=== PATIENT | female | born 1955 | race Hispanic/Latino ===

== ENCOUNTER 2016-11-23 15:24 | Outpatient (CLI) | payer OTHER ==
[2016-11-23 15:52] LABS: Anion Gap 16 mmol/L; BUN/Creatinine Ratio 23.33; Blood Urea Nitrogen 14 mg/dL (7-17); Calcium 8.9 mg/dL (8.4-10.2); Carbon Dioxide 28 mmol/L (22-30); Chloride 99.7 mmol/L (98-107); Glucose 100 mg/dL (65-100); Potassium 4.2 mmol/L (3.6-5.0); Sodium 139 mmol/L (137-145)
== END 2016-11-23 15:25 | disposition home or self-care (01) ==
LOC: LAB 15:24
PROVIDERS: ATTEND Surgery
DX: R10.30 Lower abdominal pain, unspecified (principal); I10 Essential (primary) hypertension; F17.200 Nicotine dependence, unspecified, uncomplicated
CPT/HCPCS: 36415; 80048

== ENCOUNTER 2016-12-11 16:43 | Inpatient (IN) | payer OTHER ==
[2016-12-11 18:00] LABS: Basophils % (Auto) 0.8 % (0.0-1.8); Eosinophils % (Auto) 0.4 % (0.0-4.3); Hematocrit 40.4 % (30.3-42.9); Hemoglobin 12.9 gm/dl (10.1-14.3); Mean Corpuscular HGB Conc 32 % (30-34); Mean Corpuscular Hemoglobin 27 pg (28-32); Mean Corpuscular Volume 83 fl (79-97); Platelet Count 426 K/mm3 (140-440); Red Blood Count 4.87 M/mm3 (3.65-5.03); Red Cell Distribution Width 16.5 % (13.2-15.2); White Blood Count 18.9 K/mm3 (4.5-11.0)
[2016-12-11 18:23] LABS: Alanine Aminotransferase 11 units/L (7-56); Albumin 3.4 g/dL (3.9-5); Albumin/Globulin Ratio 0.9 %; Alkaline Phosphatase 103 units/L (35-129); Anion Gap 20 mmol/L; BUN/Creatinine Ratio 17.14; Blood Urea Nitrogen 12 mg/dL (7-17); Calcium 8.8 mg/dL (8.4-10.2); Carbon Dioxide 23 mmol/L (22-30); Chloride 97.3 mmol/L (98-107); Glucose 112 mg/dL (65-100); Lipase 9 units/L (13-60); Potassium 4.9 mmol/L (3.6-5.0); Sodium 135 mmol/L (137-145); Total Protein 7.2 g/dL (6.3-8.2)
[2016-12-11 18:41] LABS: Bilirubin,Urine NEG (Negative); Blood,Urine NEG (Negative); Ketones,Urine NEG (Negative); Leukocyte Esterase,Urine SM (Negative); Mucus,Urine 1+ /HPF; Nitrite,Urine NEG (Negative); Urobilinogen,Urine < 2.0 mg/dL (<2.0)
[2016-12-11] MEDS ORDERED: NACL ONE (19:32)
[2016-12-11] MEDS ORDERED: MORPHINE IV ONE (20:22)
[2016-12-11] MEDS ORDERED: ZOFRAN IV ONE (20:22)
--- NOTE | 2016-12-11 20:34 | Emergency Department Report ---
HPI - General Chief Complaint: Abdominal Pain Time Seen by Provider: 12/11/16 20:09 - HPI HPI: Room 19 The patient is a 7-year-old female presenting with chief complaint of abdominal pain. The patient was recently discharged from this hospital after medical management of diverticulitis with a small diverticular abscess. The patient states at the time of discharge her pain was still present but severely decreased. The patient states later that afternoon her pain worsened. Patient states the pain is sharp like a knife. Patient admits to nausea but denies vomiting. Patient denies any history of fever. Patient states her pain worsened and caused her to pass out. Patient states she contacted her surgeon ( Dr. Austin) were instructed her to come to the ED for repeat CT scan Location: Left lower quadrant Duration: One week Quality: Sharp like a knife Severity:12/14 Modifying factors: [see above] Context: [see above] Mode of transportation: [not driving] ED Past Medical Hx - Past Medical History Previous Medical History?: Yes Hx Hypertension: Yes Hx Arthritis: Yes Additional medical history: INTERSTITIAL CYSTITIS. DIVERTICULITIS - Surgical History Past Surgical History?: Yes Additional Surgical History: BLADDER STRETCHED - Family History Family history: no significant - Social History Smoking Status: Current Every Day Smoker (less than one half pack per day) Substance Use Type: None - Medications Home Medications: Home Medications Medication Instructions Recorded Confirmed Last Taken Type Bisacodyl [Dulcolax suppos] 10 mg [place] QDAY PRN #12 supp.rect 12/05/16 12/11/16 12:00 Rx Levofloxacin [Levaquin TAB] 500 mg PO QDAY #7 tablet 12/05/16 12/11/16 12/11/16 12:00 Rx Ondansetron [Zofran TAB] 4 mg PO Q8H PRN #12 tablet 12/05/16 12/11/16 12/11/16 12:00 Rx metroNIDAZOLE [Flagyl TAB] 500 mg PO Q8HR #21 tablet 12/05/16 12/11/16 12/11/16 12:00 Rx ED Review of Systems ROS: Stated complaint: DR'S ORDERS Other details as noted in HPI Comment: All other systems reviewed and negative Constitutional: denies: chills, fever Eyes: denies: eye pain, eye discharge, vision change ENT: denies: ear pain, throat pain Respiratory: denies: cough, shortness of breath, wheezing Cardiovascular: denies: chest pain, palpitations Endocrine: no symptoms reported Gastrointestinal: abdominal pain, nausea. denies: vomiting, diarrhea Genitourinary: denies: urgency, dysuria, discharge Musculoskeletal: denies: back pain, joint swelling, arthralgia Skin: denies: rash, lesions Neurological: denies: headache, weakness, paresthesias Psychiatric: denies: anxiety, depression Hematological/Lymphatic: denies: easy bleeding, easy bruising Physical Exam - Physical Exam Vital Signs: Vital Signs 12/11/16 12/11/16 12/11/16 17:40 18:56 19:36 Temperature 98.5 F Pulse Rate 107 H 69 Respiratory 16 18 16 Rate Blood Pressure 111/82 Blood Pressure 99/72 [Right] O2 Sat by Pulse 100 100 100 Oximetry 12/11/16 19:38 Temperature Pulse Rate Respiratory 16 Rate Blood Pressure Blood Pressure [Right] O2 Sat by Pulse Oximetry Physical Exam: GENERAL: The patient is well-developed well-nourished female lying on stretcher not appearing to be in acute distress. [] HEENT: Normocephalic. Atraumatic. Extraocular motions are intact. Patient has moist mucous membranes. NECK: Supple. Trachea midline CHEST/LUNGS: Clear to auscultation. There is no respiratory distress noted. HEART/CARDIOVASCULAR: Regular. There is no tachycardia. There is no gallop rub or murmur. ABDOMEN: Abdomen is soft, with tenderness to palpation in suprapubic and left lower quadrant. Patient has normal bowel sounds. There is no abdominal distention. SKIN: There is no rash. There is no edema. There is no diaphoresis. NEURO: The patient is awake, alert, and oriented. The patient is cooperative. The patient has normal speech MUSCULOSKELETAL: There is no evidence of acute injury. ED Course Vital Signs 12/11/16 12/11/16 12/11/16 17:40 18:56 19:36 Temperature 98.5 F Pulse Rate 107 H 69 Respiratory 16 18 16 Rate Blood Pressure 111/82 Blood Pressure 99/72 [Right] O2 Sat by Pulse 100 100 100 Oximetry 12/11/16 19:38 Temperature Pulse Rate Respiratory 16 Rate Blood Pressure Blood Pressure [Right] O2 Sat by Pulse Oximetry - Consultations Consultation #1: 12/11/16 21:57 Dr. Austin paged 12/11/16 22:[address] Austin. Will admit ED Medical Decision Making - Lab Data Result diagrams: 12/11/16 17:49 12/11/16 17:49 Laboratory Tests 12/11/16 12/11/16 12/11/16 17:49 17:49 17:59 WBC 18.9 H RBC 4.87 Hgb 12.9 Hct 40.4 MCV 83 MCH 27 L MCHC 32 RDW 16.5 H Plt Count 426 Lymph % (Auto) 11.4 L [place] % (Auto) 7.0 Eos % (Auto) 0.4 Baso % (Auto) 0.8 Lymph # 2.2 [place] # 1.3 H Eos # 0.1 Baso # 0.2 H Seg Neutrophils % 80.4 H Seg Neutrophils # 15.2 H Sodium 135 L Potassium 4.9 Chloride 97.3 L Carbon Dioxide 23 Anion Gap 20 BUN 12 Creatinine 0.7 Estimated GFR > 60 BUN/Creatinine Ratio 17.14 Glucose 112 H Calcium 8.8 Total Bilirubin 0.40 AST 10 ALT 11 Alkaline Phosphatase 103 Total Protein 7.2 Albumin 3.4 L Albumin/Globulin Ratio 0.9 Lipase 9 L Urine Color Meaghan Urine Turbidity Clear Urine pH 5.0 Ur Specific [place] 1.036 H Urine Protein 30 mg/dl Urine Glucose (UA) Neg Urine Ketones Neg Urine Blood Neg Urine Nitrite Neg Urine Bilirubin Neg Urine Urobilinogen < 2.0 Ur Leukocyte Esterase Sm Urine WBC (Auto) 3.0 Urine RBC (Auto) 4.0 U Epithel Cells (Auto) 1.0 Urine Mucus 1+ - Differential Diagnosis diverticulitis, diverticular abscess, bowel perforation Critical care attestation.: If time is entered above; I have spent that time in minutes in the direct care of this critically ill patient, excluding procedure time. ED Disposition Clinical Impression: Diverticulitis of intestine with abscess, Acute abdominal pain, Leukocytosis Disposition: OP ADMIT IP TO THIS HOSP Is pt being admited?: Yes Does the pt Need Aspirin: No Condition: Fair Instructions: Abdominal Pain (ED) Referrals: PRIMARY CARE, [Primary Care Provider] - 3-5 Days Time of Disposition: 22:04 (Dr. Austin notified)
[2016-12-11] MEDS ORDERED: SUBLIMAZE IV ONE (20:45)
--- NOTE | 2016-12-11 21:58 | Cat Scan Report ---
FINAL REPORT EXAM: CT ABDOMEN PELVIS W CON HISTORY: ABD PAIN TECHNIQUE: CT images are acquired through the Abdomen and Pelvis following ingestion of positive enteric contrast and in arterial and delayed excretory phase following intravenous administration of contrast. Transaxial, coronal and sagittal reformations are provided. PRIORS: 11/13/2015 FINDINGS: Partially visualized intrathoracic contents are unremarkable. The liver, gallbladder, pancreas, spleen, and adrenal glands are normal. Kidneys show no worrisome lesions, hydronephrosis, or calculi. There is thickening of the urinary bladder wall. No air or contrast is seen within the urinary bladder on arterial or delayed phases. Mass effect on the superior urinary bladder from adjacent fluid collection, as described in detail below. Positive enteric contrast is seen as far distally as the rectum. There is marked wall thickening and irregularity with adjacent stranding and fluid involving the rectosigmoid junction and distal sigmoid colon best demonstrated on axial series 3, image 117. A fluid collection abutting the sigmoid colon on axial images 124-127 contains small foci of air and is peripherally enhancing. No communication with the urinary bladder or additional loops of bowel is visualized on this exam. Small and large bowel are normal in caliber. Appendix is normal. No pneumoperitoneum. Aorta is normal in course and caliber. Superficial soft tissues are unremarkable. No acute or aggressive appearing skeletal findings. IMPRESSION: Acute sigmoid diverticulitis is present with adjacent abscess formation measuring at least 4.1 x 4.8 x 4.1 cm. The abscess abuts the urinary bladder and several loops of contrast opacified small bowel but does not clearly communicate with any additional structures. No elissa pneumoperitoneum. Potential underlying sigmoid colonic malignancy should be investigated following treatment if colonoscopy has not been recently performed. Dr. Jiang discussed findings with Dr. Gary at [address] [employer] following the examination.
[2016-12-11] MEDS ORDERED: MORPHINE IV PRN (22:14)
[2016-12-11] MEDS: FLAGYL 500 MG/100 ML 500 MG/100 ML BAG IV SCH (23:00)
[2016-12-11] MEDS: D5/0.45NS 1,000 ML IV SCH (23:35)
[2016-12-11] MEDS: LEVAQUIN 500MG/100ML 500 MG/100 ML BAG IV SCH (23:43)
[2016-12-12] MEDS: MORPHINE IV PRN ×4 (00:10→21:25)
[2016-12-12] MEDS: ZOFRAN IV PRN ×3 (00:52→21:25)
[2016-12-12] MEDS: FLAGYL 500 MG/100 ML 500 MG/100 ML BAG IV SCH ×3 (05:44→21:44)
[2016-12-12 07:19] LABS: Basophils % (Auto) 0.5 % (0.0-1.8); Eosinophils % (Auto) 2.1 % (0.0-4.3); Hematocrit 34.5 % (30.3-42.9); Hemoglobin 11.1 gm/dl (10.1-14.3); Mean Corpuscular HGB Conc 32 % (30-34); Mean Corpuscular Hemoglobin 27 pg (28-32); Mean Corpuscular Volume 83 fl (79-97); Platelet Count 356 K/mm3 (140-440); Red Blood Count 4.18 M/mm3 (3.65-5.03); Red Cell Distribution Width 15.9 % (13.2-15.2)
[2016-12-12] MEDS: D5/0.45NS 1,000 ML IV SCH (12:35)
[2016-12-12 12:53] LABS: Anion Gap 16 mmol/L; BUN/Creatinine Ratio 14.28; Blood Urea Nitrogen 10 mg/dL (7-17); Calcium 8.3 mg/dL (8.4-10.2); Carbon Dioxide 24 mmol/L (22-30); Chloride 101.7 mmol/L (98-107); Glucose 102 mg/dL (65-100); Potassium 3.9 mmol/L (3.6-5.0); Sodium 138 mmol/L (137-145)
--- NOTE | 2016-12-12 16:40 | Progress Note ---
Assessment and Plan 61 y/o female known to me. Recently admitted with diverticulitis with abscess formation. Rx with antibiotics and clinically improved. wbc returned to normal , jose juan diet, pain free and was d/c'ed to outpt f/u. However pt called me yest that she began to experience pain again. Was re- eval in ER where abscess was noted to be slightly enlarged Pt re-admitted. will be kept NPO and start TPN. Continue IV antibiiotics. IR eval for percutaneous CT guided drainage Will attempt one last trial of aggressive medical management in hopes of avoiding colostomy. Selected Entries 12/05/16 12/12/16 09:32 08:00 Temperature 98.2 F 98.3 F Pulse Rate [ 70 Left Radial] Respiratory 16 18 Rate O2 Sat by Pulse 97 Oximetry Blood Pressure 98/53 [Left Arm] Blood Pressure 123/72 [Left Radial Artery] Laboratory Tests 12/05/16 12/05/16 12/11/16 05:12 05:12 17:49 WBC 8.4 18.9 H Hgb 11.4 12.9 Hct 34.5 40.4 Sodium 142 Potassium 3.4 L Chloride 105.2 Carbon Dioxide 27 Anion Gap 13 BUN Creatinine 12/12/16 12/12/16 06:43 12:10 WBC 12.0 H Hgb 11.1 Hct 34.5 Sodium 138 Potassium 3.9 D Chloride 101.7 Carbon Dioxide 24 Anion Gap 16 BUN 10 Creatinine 0.7 Objective Vital Signs - 12hr 12/12/16 08:00 Temperature 98.3 F Pulse Rate [ 87 Brachial] Respiratory 18 Rate Blood Pressure 98/53 [Left Arm] O2 Sat by Pulse 97 Oximetry - Labs 12/12/16 06:43 12/12/16 12:10 Diabetes panel 12/12/16 Range/Units 12:10 Sodium 138 (137-145) mmol/L Potassium 3.9 D (3.6-5.0) mmol/L Chloride 101.7 (98-107) mmol/L Carbon Dioxide 24 (22-30) mmol/L BUN 10 (7-17) mg/dL Creatinine 0.7 (0.7-1.2) mg/dL Glucose 102 H (65-100) mg/dL Calcium 8.3 L (8.4-10.2) mg/dL Calcium panel 12/12/16 Range/Units 12:10 Calcium 8.3 L (8.4-10.2) mg/dL Phosphorus 3.40 (2.5-4.5) mg/dL Pituitary panel 12/12/16 Range/Units 12:10 Sodium 138 (137-145) mmol/L Potassium 3.9 D (3.6-5.0) mmol/L Chloride 101.7 (98-107) mmol/L Carbon Dioxide 24 (22-30) mmol/L BUN 10 (7-17) mg/dL Creatinine 0.7 (0.7-1.2) mg/dL Glucose 102 H (65-100) mg/dL Calcium 8.3 L (8.4-10.2) mg/dL Adrenal panel 12/12/16 Range/Units 12:10 Sodium 138 (137-145) mmol/L Potassium 3.9 D (3.6-5.0) mmol/L Chloride 101.7 (98-107) mmol/L Carbon Dioxide 24 (22-30) mmol/L BUN 10 (7-17) mg/dL Creatinine 0.7 (0.7-1.2) mg/dL Glucose 102 H (65-100) mg/dL Calcium 8.3 L (8.4-10.2) mg/dL
--- NOTE | 2016-12-12 16:41 | History and Physical Report ---
History of Present Illness Date of admission: 12/11/16 22:08 Medications and Allergies Allergies Allergy/AdvReac Type Severity Reaction Status Date / Time No Known Allergies Allergy Verified 12/11/16 19:49 Home Medications Medication Instructions Recorded Confirmed Last Taken Type Bisacodyl [Dulcolax suppos] 10 mg [place] QDAY PRN #12 supp.rect 12/05/16 12/11/16 12:00 Rx Levofloxacin [Levaquin TAB] 500 mg PO QDAY #7 tablet 12/05/16 12/11/16 12/11/16 12:00 Rx Ondansetron [Zofran TAB] 4 mg PO Q8H PRN #12 tablet 12/05/16 12/11/16 12/11/16 12:00 Rx metroNIDAZOLE [Flagyl TAB] 500 mg PO Q8HR #21 tablet 12/05/16 12/11/16 12/11/16 12:00 Rx Active Meds: Active Medications Dextrose/Sodium Chloride (D5/0.45ns) 1,000 mls @ 125 mls/hr IV DIRECT [facility] Last Admin: 12/12/16 12:35 Dose: 125 mls/hr Levofloxacin/Dextrose (Levaquin 500mg/100ml) 500 mg in 100 mls @ 100 mls/hr IV Q24HR@2200 [facility] PRN Reason: Protocol Last Admin: 12/11/16 23:43 Dose: 100 mls/hr Metronidazole (Flagyl 500 Mg/100 Ml) 500 mg in 100 mls @ 100 mls/hr IV Q8HR [facility] Last Admin: 12/12/16 15:23 Dose: 100 mls/hr Amino Acids/Electrolytes/Dextrose (Tpn Adult) 2,016 mls @ 84 mls/hr IV DAILY@ 2000 [facility] PRN Reason: Protocol Stop: 12/13/16 19:59 Morphine Sulfate (Morphine) 4 mg IV Q3H PRN PRN Reason: Pain, Moderate (4-6) Last Admin: 12/12/16 15:22 Dose: 4 mg Nicotine (Habitrol) 14 mg TD QDAY [facility] Ondansetron HCl (Zofran) 4 mg IV Q4H PRN PRN Reason: Nausea Last Admin: 12/12/16 10:52 Dose: 4 mg Exam Vital Signs Temp Pulse Resp BP Pulse Ox 98.5 F 107 H 16 111/82 100 12/11/16 17:40 12/11/16 17:40 12/11/16 17:40 12/11/16 17:40 12/11/16 17:40 Results - Labs 12/12/16 06:43 12/12/16 12:10 Abnormal lab results 12/12/16 12/12/16 Range/Units 06:43 12:10 WBC 12.0 H (4.5-11.0) K/mm3 MCH 27 L (28-32) pg RDW 15.9 H (13.2-15.2) % [place] % (Auto) 10.9 H (0.0-7.3) % [place] # 1.3 H (0.0-0.8) K/mm3 Seg Neutrophils # 8.4 H (1.8-7.7) K/mm3 Glucose 102 H (65-100) mg/dL Calcium 8.3 L (8.4-10.2) mg/dL Diabetes panel 12/12/16 Range/Units 12:10 Sodium 138 (137-145) mmol/L Potassium 3.9 D (3.6-5.0) mmol/L Chloride 101.7 (98-107) mmol/L Carbon Dioxide 24 (22-30) mmol/L BUN 10 (7-17) mg/dL Creatinine 0.7 (0.7-1.2) mg/dL Glucose 102 H (65-100) mg/dL Calcium 8.3 L (8.4-10.2) mg/dL Calcium panel 12/12/16 Range/Units 12:10 Calcium 8.3 L (8.4-10.2) mg/dL Phosphorus 3.40 (2.5-4.5) mg/dL Pituitary panel 12/12/16 Range/Units 12:10 Sodium 138 (137-145) mmol/L Potassium 3.9 D (3.6-5.0) mmol/L Chloride 101.7 (98-107) mmol/L Carbon Dioxide 24 (22-30) mmol/L BUN 10 (7-17) mg/dL Creatinine 0.7 (0.7-1.2) mg/dL Glucose 102 H (65-100) mg/dL Calcium 8.3 L (8.4-10.2) mg/dL Adrenal panel 12/12/16 Range/Units 12:10 Sodium 138 (137-145) mmol/L Potassium 3.9 D (3.6-5.0) mmol/L Chloride 101.7 (98-107) mmol/L Carbon Dioxide 24 (22-30) mmol/L BUN 10 (7-17) mg/dL Creatinine 0.7 (0.7-1.2) mg/dL Glucose 102 H (65-100) mg/dL Calcium 8.3 L (8.4-10.2) mg/dL Assessment and Plan 61 y/o female known to me. Recently admitted with diverticulitis with abscess formation. Rx with antibiotics and clinically improved. wbc returned to normal , jose juan diet, pain free and was d/c'ed to outpt f/u. However pt called me yest that she began to experience pain again. Was re- eval in ER where abscess was noted to be slightly enlarged Pt re-admitted. for other Past Hx please review admission from a couple of weeks ago. Abd soft. mild LLQ abd tenderness. IMP -persistent diverticulitis will be kept NPO and start TPN. Continue IV antibiiotics. IR eval for percutaneous CT guided drainage Will attempt one last trial of aggressive medical management in hopes of avoiding colostomy. Laboratory Tests 12/11/16 12/12/16 12/12/16 17:49 06:43 12:10 WBC 18.9 H 12.0 H Hgb 12.9 11.1 Hct 40.4 34.5 Sodium 138 Potassium 3.9 D Chloride 101.7 Carbon Dioxide 24 Anion Gap 16 BUN 10 Creatinine 0.7
[2016-12-12] MEDS: HABITROL TD SCH (18:23)
[2016-12-12] MEDS ORDERED: TPN ADULT 3,000 ML IV SCH (20:00)
[2016-12-12] MEDS: TPN ADULT 2,016 ML IV SCH ×2 (20:46→21:27)
[2016-12-12] MEDS: LEVAQUIN 500MG/100ML 500 MG/100 ML BAG IV SCH (22:42)
[2016-12-13] MEDS: ZOFRAN IV PRN ×2 (03:46→21:31)
[2016-12-13] MEDS: MORPHINE IV PRN ×5 (03:46→21:31)
[2016-12-13 05:43] LABS: Magnesium 1.8 mg/dL (1.7-2.3); Phosphorous 3.6 mg/dL (2.5-4.5)
[2016-12-13 05:45] LABS: Alanine Aminotransferase 7 units/L (7-56); Albumin 2.5 g/dL (3.9-5); Albumin/Globulin Ratio 0.8 %; Alkaline Phosphatase 76 units/L (35-129); Anion Gap 16 mmol/L; Blood Urea Nitrogen 9 mg/dL (7-17); Calcium 7.8 mg/dL (8.4-10.2); Carbon Dioxide 23 mmol/L (22-30); Chloride 100.4 mmol/L (98-107); Glucose 112 mg/dL (65-100); Potassium 4.3 mmol/L (3.6-5.0); Sodium 135 mmol/L (137-145); Total Protein 5.8 g/dL (6.3-8.2)
[2016-12-13] MEDS: FLAGYL 500 MG/100 ML 500 MG/100 ML BAG IV SCH ×3 (07:45→23:10)
[2016-12-13] MEDS: HABITROL TD SCH (09:25)
[2016-12-13] MEDS ORDERED: TPN ADULT 2,016 ML IV SCH (20:00)
[2016-12-13] MEDS: LEVAQUIN 500MG/100ML 500 MG/100 ML BAG IV SCH (21:36)
[2016-12-14] MEDS: MORPHINE IV PRN ×5 (02:08→20:11)
[2016-12-14 05:35] LABS: Basophils % (Auto) 0.5 % (0.0-1.8); Eosinophils % (Auto) 3.4 % (0.0-4.3); Hematocrit 30.2 % (30.3-42.9); Hemoglobin 9.9 gm/dl (10.1-14.3); Mean Corpuscular HGB Conc 33 % (30-34); Mean Corpuscular Hemoglobin 28 pg (28-32); Mean Corpuscular Volume 84 fl (79-97); Platelet Count 348 K/mm3 (140-440); Red Blood Count 3.61 M/mm3 (3.65-5.03); Red Cell Distribution Width 15.5 % (13.2-15.2); White Blood Count 9.4 K/mm3 (4.5-11.0)
[2016-12-14 05:52] LABS: Anion Gap 16 mmol/L; Blood Urea Nitrogen 9 mg/dL (7-17); Carbon Dioxide 27 mmol/L (22-30); Glucose 124 mg/dL (65-100); Potassium 4.1 mmol/L (3.6-5.0); Sodium 139 mmol/L (137-145)
[2016-12-14] MEDS: FLAGYL 500 MG/100 ML 500 MG/100 ML BAG IV SCH ×3 (06:09→21:48)
--- NOTE | 2016-12-14 08:00 | Progress Note ---
Assessment and Plan Pt feeling better. less pain Abd soft, non tender at present wbc down to 9.4 awaiting IR eval for CT guided drainage Selected Entries 12/14/16 07:27 Temperature 98.1 F Pulse Rate [ 86 Brachial] Respiratory 16 Rate O2 Sat by Pulse 97 Oximetry Blood Pressure 89/59 [Left Arm] Laboratory Tests 12/14/16 04:55 WBC 9.4 Hgb 9.9 L Hct 30.2 L Objective Vital Signs - 12hr 12/13/16 12/14/16 23:03 07:27 Temperature 98.2 F 98.1 F Pulse Rate [ 79 86 Brachial] Respiratory 79 H 16 Rate Blood Pressure 102/59 89/59 [Left Arm] O2 Sat by Pulse 99 97 Oximetry - Labs 12/14/16 04:55 12/14/16 04:55 Diabetes panel 12/14/16 Range/Units 04:55 Sodium 139 (137-145) mmol/L Potassium 4.1 (3.6-5.0) mmol/L Chloride 100.0 (98-107) mmol/L Carbon Dioxide 27 (22-30) mmol/L BUN 9 (7-17) mg/dL Creatinine 0.6 L (0.7-1.2) mg/dL Glucose 124 H (65-100) mg/dL Calcium 8.0 L (8.4-10.2) mg/dL Calcium panel 12/14/16 Range/Units 04:55 Calcium 8.0 L (8.4-10.2) mg/dL Phosphorus 3.90 (2.5-4.5) mg/dL Pituitary panel 12/14/16 Range/Units 04:55 Sodium 139 (137-145) mmol/L Potassium 4.1 (3.6-5.0) mmol/L Chloride 100.0 (98-107) mmol/L Carbon Dioxide 27 (22-30) mmol/L BUN 9 (7-17) mg/dL Creatinine 0.6 L (0.7-1.2) mg/dL Glucose 124 H (65-100) mg/dL Calcium 8.0 L (8.4-10.2) mg/dL Adrenal panel 12/14/16 Range/Units 04:55 Sodium 139 (137-145) mmol/L Potassium 4.1 (3.6-5.0) mmol/L Chloride 100.0 (98-107) mmol/L Carbon Dioxide 27 (22-30) mmol/L BUN 9 (7-17) mg/dL Creatinine 0.6 L (0.7-1.2) mg/dL Glucose 124 H (65-100) mg/dL Calcium 8.0 L (8.4-10.2) mg/dL
[2016-12-14] MEDS: ZOFRAN IV PRN ×2 (10:26→20:11)
[2016-12-14] MEDS: HABITROL TD SCH (10:27)
--- NOTE | 2016-12-14 10:50 | Consultation ---
History of Present Illness - Reason for Consult Consult date: 12/14/16 - History of Present Illness This is a 61-year-old female with recurrent diverticulitis. She had a recent episode which was treated with antibiotics. However, she complained of increasing abdominal pain thereafter and was brought back to the hospital. CT imaging from over the weekend demonstrated that a known diverticular abscess had increased in size. As such, IR drainage has been requested. Over the last couple of days the patient has clinically improved, with less pain overall. Her white blood cell count has decreased, likely related to the use of IV antibiotics. Medications and Allergies Allergies Allergy/AdvReac Type Severity Reaction Status Date / Time No Known Allergies Allergy Verified 12/11/16 19:49 Home Medications Medication Instructions Recorded Confirmed Last Taken Type Bisacodyl [Dulcolax suppos] 10 mg [place] QDAY PRN #12 supp.rect 12/05/16 12/11/16 12:00 Rx Levofloxacin [Levaquin TAB] 500 mg PO QDAY #7 tablet 12/05/16 12/11/16 12/11/16 12:00 Rx Ondansetron [Zofran TAB] 4 mg PO Q8H PRN #12 tablet 12/05/16 12/11/16 12/11/16 12:00 Rx metroNIDAZOLE [Flagyl TAB] 500 mg PO Q8HR #21 tablet 12/05/16 12/11/16 12/11/16 12:00 Rx Active Meds: Active Medications Levofloxacin/Dextrose (Levaquin 500mg/100ml) 500 mg in 100 mls @ 100 mls/hr IV Q24HR@2200 [facility] PRN Reason: Protocol Last Admin: 12/13/16 21:36 Dose: 100 mls/hr Metronidazole (Flagyl 500 Mg/100 Ml) 500 mg in 100 mls @ 100 mls/hr IV Q8HR [facility] Last Admin: 12/14/16 06:09 Dose: 100 mls/hr Amino Acids/Electrolytes/Dextrose (Tpn Adult) 2,016 mls @ 84 mls/hr IV DAILY@ 2000 [facility] PRN Reason: Protocol Stop: 12/14/16 19:59 Last Admin: 12/13/16 20:26 Dose: 84 mls/hr Sodium Chloride (Nacl 0.45% 1000 Ml) 1,000 mls @ 42 mls/hr IV DIRECT [facility] Morphine Sulfate (Morphine) 4 mg IV Q3H PRN PRN Reason: Pain, Moderate (4-6) Last Admin: 12/14/16 10:26 Dose: 4 mg Nicotine (Habitrol) 14 mg TD QDAY [facility] Last Admin: 12/14/16 10:27 Dose: 14 mg Ondansetron HCl (Zofran) 4 mg IV Q4H PRN PRN Reason: Nausea Last Admin: 12/14/16 10:26 Dose: 4 mg Exam - Constitutional Vitals: Temp Pulse Resp BP Pulse Ox 98.1 F 86 16 89/59 97 12/14/16 07:27 12/14/16 07:27 12/14/16 07:27 12/14/16 07:27 12/14/16 07:27 Results - Labs CBC & Chem 7: 12/14/16 04:55 12/14/16 04:55 Labs: Abnormal lab results 12/13/16 12/13/16 12/14/16 Range/Units 12:47 18:34 04:55 RBC 3.61 L (3.65-5.03) M/mm3 Hgb 9.9 L (10.1-14.3) gm/dl Hct 30.2 L (30.3-42.9) % RDW 15.5 H (13.2-15.2) % [place] % (Auto) 9.5 H (0.0-7.3) % [place] # 0.9 H (0.0-0.8) K/mm3 Creatinine (0.7-1.2) mg/dL Glucose (65-100) mg/dL POC Glucose 118 H 120 H (70-105) Calcium (8.4-10.2) mg/dL 12/14/16 Range/Units 04:55 RBC (3.65-5.03) M/mm3 Hgb (10.1-14.3) gm/dl Hct (30.3-42.9) % RDW (13.2-15.2) % [place] % (Auto) (0.0-7.3) % Lynn # (0.0-0.8) K/mm3 Creatinine 0.6 L (0.7-1.2) mg/dL Glucose 124 H (65-100) mg/dL POC Glucose (70-105) Calcium 8.0 L (8.4-10.2) mg/dL Assessment and Plan I evaluated her CT and determined that the abscess is amenable to percutaneous drainage. I will ultrasound the region myself and if amenable, I will place a drainage catheter with a combination of ultrasound and fluoroscopy. If the collection is not amenable to ultrasound-guided drainage, I will place a drainage catheter CT.
[2016-12-14] MEDS ORDERED: SUBLIMAZE IV ONE (11:31)
[2016-12-14] MEDS ORDERED: VERSED IV ONE ×2 (11:31→12:05)
[2016-12-14] MEDS ORDERED: SUBLIMAZE ONE (12:05)
--- NOTE | 2016-12-14 12:44 | XRay Report ---
PORTABLE CHEST INDICATION: Left arm PICC placement. COMPARISON: 10/18/2007 FINDINGS: Portable, frontal chest radiograph demonstrates normal cardiomediastinal silhouette and clear lungs. Left upper extremity PICC tip at the cavoatrial junction. A catheter also noted along the right arm medially with its tip at the axilla. Please correlate. Intact bones. CONCLUSION: Uncomplicated left upper extremity PICC with suboptimally positioned right upper arm catheter, as described. Please correlate. Thank you for the opportunity to participate in this patient's care.
--- NOTE | 2016-12-14 13:41 | Cat Scan Report ---
Procedure: CT guided drainage catheter placement Indication: This is a 61-year-old female with recurrent diverticulitis. Recent CT imaging demonstrated a left pelvic abscess. This, along with her symptoms of pain and an elevated white blood cell count warranted drainage. Physician: Marino Astudillo MD Procedure: The patient was placed in the supine position on the CT table. A marking grid was placed on the patient, and an appropriate site was marked after flood control engineer imaging. The patient was prepped and draped in the usual sterile fashion. A time out was performed. Local anesthetic was administered both superficially, and at the level of the peritoneum. A 22-gauge spinal needle was advanced under sequential CT guidance into the collection. An 18-gauge wire was advanced through the 22-gauge needle, and placement within the collection was confirmed. An AccuStick system was utilized in order to allow passage of an 035 J-wire. Over the J-wire, sequential tissue dilators were advanced and removed. Thereafter, a 10 Uzbek all-purpose drainage catheter was placed, and the locking loop was formed. Placement was confirmed via CT. The drain was secured to the skin with a 2-0 silk suture and a stat lock. The drain was then connected to a Uracil bag. Sterile dressings were placed. The patient was then transported off the table in good condition. Findings: Review of the flood control engineer imaging demonstrates a left lower quadrant abscess with surrounding inflammatory changes. The inferior aspect of the abscess abuts the urinary bladder. There is successful placement of a 10 Uzbek drainage catheter into this collection. Approximately 50 cc of bloody/purulent thick fluid was promptly drained. A specimen was sent to the lab for Gram stain, culture and sensitivity.
--- NOTE | 2016-12-14 15:10 | Admit Criteria Form ---
Admission Criteria Documentation: ABDOMINAL PAIN Clinical Indications for Admission to Inpatient Care (Place 'X' for any and all applicable criteria): Admission is indicated for ANY ONE of the following(1)(2)(3)(4)(5): [ X]I. Inpatient admission required rather than observation care (Also use Abdominal Pain: Observation Care, as appropriate) because of ANY ONE of the following: [ ]a) Severe pain requiring acute inpatient management [X ]b) Identification of etiology/finding that requires inpatient care (eg, aortic dissection, free air) [ ]c) Absent bowel sounds with complete ileus(6) [ ]d) Suspected toxic megacolon [ ]e) Severe electrolyte abnormalities requiring inpatient care [ ]f) High fever or infection requiring inpatient admission as indicated by ANY ONE of following(7)(8): [ ] i) Appropriate outpatient or observational care antimicrobial treatment unavailable, not effective, or not feasible [ ] ii) Documented bacteremia [ ] iii) Temperature > 104.9 degrees F (oral) [ ] iv) T >103.1 F (oral) or < 96.8 F(rectal) that does not respond to all emergency treatment measures [ ]g) Signs of intestinal obstruction [B] [ ]h) Hemodynamic instability [ ]i) IV fluid to replace significant ongoing losses (greater than 3 L/m2 per day) (12)(13) [ ]j) Percutaneous or open drainage (eg, abscess, biliary tract ) procedures [ ]k) Parenteral nutrition regimen that must be implemented on inpatient basis [ ]l) Other condition,treatment or monitoring requiring inpatient admission. [ ]II. Peritoneal signs present [ ]III. Surgery needed that cannot be performed on an ambulatory basis. [ ]IV. Evaluation requires patient to not eat or drink for extended period ( eg, more than 24 hours). [ ]V. Contraindications and/or Inappropriate clinical situations for Observational Care in patients with abdominal pain, when ANY ONE of the following is required: [ ]a) Thorough evaluation is required to prevent catastrophic events due to delays in diagnosing (e.g.Mesenteric ischemia) 1,3 [ ]b) Patient with severe pathology or with chronic symptoms unlikely to improve in the ED stay (3) [ ]. General contraindications and/or Inappropriate clinical situations for Observational Care in patients with abdominal pain, when ANY ONE of the following is required: [ ]a) Prediction of prolongation of LOS based on ANY ONE of the following may be considered as a contraindication for observational care 2, 3, 4, 5, 6, 7, 8, 9, 10, 11 [ ]i) Age > 65 yrs. [ ]ii) Patient arriving by ambulance [ ]iii) Patient with high acuity [ ]iv) Patient requiring vital sign monitoring [ ]v) Patient on IV medication [ ]b) Systolic blood pressures 180mmHg 3,12 [ ]c) Patient with altered mental status including delirium and other alteration of consciousness, (3) [ ]d) Patient whose discharge disposition will be to a [facility] home or rehabilitation home should not be managed in Emergency Department Observation Unit. CMS rule requires 3 days hospital stay before such placement.3,13 [ ]e) Patient with failure to thrive due to broad array of etiologies 3,16,17 [ ]f) Inability to ambulate 3,14 Extended stay beyond goal length of stay may be needed for(2)(3): [ ]a) Persistent abdominal pain with suspected intra-abdominal process [ ]b) Diagnosed condition requiring continued stay (e.g., pancreatitis, complicated diverticulitis) [ ]c) Surgery (e.g., colectomy) The original [employer] content created by [email or web address] has been revised. The portions of the content which have been revised are identified through the use of italic text or in bold, and [facility] has neither reviewed nor approved the modified material.All other unmodified content is copyright [employer]. Please see references footnoted in the original [employer] edition 2016 Admission Criteria Met: Yes
[2016-12-14] MEDS ORDERED: TPN ADULT 2,016 ML IV SCH (20:00)
[2016-12-14] MEDS ORDERED: INTRALIPID 20% 250 ML IV SCH (20:00)
[2016-12-14] MEDS: LEVAQUIN 500MG/100ML 500 MG/100 ML BAG IV SCH (23:22)
[2016-12-15] MEDS: MORPHINE IV PRN ×5 (02:13→20:35)
[2016-12-15] MEDS: FLAGYL 500 MG/100 ML 500 MG/100 ML BAG IV SCH ×3 (05:55→22:21)
[2016-12-15 06:34] LABS: Anion Gap 15 mmol/L; Blood Urea Nitrogen 13 mg/dL (7-17); Calcium 8.4 mg/dL (8.4-10.2); Carbon Dioxide 28 mmol/L (22-30); Chloride 97.7 mmol/L (98-107); Glucose 96 mg/dL (65-100); Potassium 4.2 mmol/L (3.6-5.0); Sodium 136 mmol/L (137-145)
[2016-12-15] MEDS: NACL 0.45% 1000 ML 1,000 ML IV SCH (08:19)
[2016-12-15] MEDS: HABITROL TD SCH (09:58)
--- NOTE | 2016-12-15 12:11 | Progress Note ---
Assessment and Plan Pt status quo. Successful CT guided drainage perfomed yest (around 45 cc from drain noted since procedure). cults pending Abd soft, non tender stable will obtain ID eval continue TPN continue present care Selected Entries 12/15/16 11:05 Temperature 98.4 F Pulse Rate [ 80 Brachial] Respiratory 18 Rate Blood Pressure 106/65 [Left Arm] Objective Vital Signs - 12hr 12/15/16 12/15/16 12/15/16 05:52 07:25 11:05 Temperature 98.4 F 98.7 F 98.4 F Pulse Rate [ 83 71 80 Brachial] Respiratory 16 18 18 Rate Blood Pressure 102/67 95/59 106/65 [Left Arm] O2 Sat by Pulse 95 Oximetry - Labs 12/14/16 04:55 12/15/16 Unknown Diabetes panel 12/15/16 Range/Units Unknown Sodium 136 L (137-145) mmol/L Potassium 4.2 (3.6-5.0) mmol/L Chloride 97.7 L (98-107) mmol/L Carbon Dioxide 28 (22-30) mmol/L BUN 13 (7-17) mg/dL Creatinine 0.5 L (0.7-1.2) mg/dL Glucose 96 (65-100) mg/dL Calcium 8.4 (8.4-10.2) mg/dL Calcium panel 12/15/16 Range/Units Unknown Calcium 8.4 (8.4-10.2) mg/dL Phosphorus 4.10 (2.5-4.5) mg/dL Pituitary panel 12/15/16 Range/Units Unknown Sodium 136 L (137-145) mmol/L Potassium 4.2 (3.6-5.0) mmol/L Chloride 97.7 L (98-107) mmol/L Carbon Dioxide 28 (22-30) mmol/L BUN 13 (7-17) mg/dL Creatinine 0.5 L (0.7-1.2) mg/dL Glucose 96 (65-100) mg/dL Calcium 8.4 (8.4-10.2) mg/dL Adrenal panel 12/15/16 Range/Units Unknown Sodium 136 L (137-145) mmol/L Potassium 4.2 (3.6-5.0) mmol/L Chloride 97.7 L (98-107) mmol/L Carbon Dioxide 28 (22-30) mmol/L BUN 13 (7-17) mg/dL Creatinine 0.5 L (0.7-1.2) mg/dL Glucose 96 (65-100) mg/dL Calcium 8.4 (8.4-10.2) mg/dL
[2016-12-15] MEDS ORDERED: TPN ADULT 2,016 ML IV SCH (20:00)
[2016-12-15] MEDS: LEVAQUIN 500MG/100ML 500 MG/100 ML BAG IV SCH (23:31)
[2016-12-16] MEDS: MORPHINE IV PRN ×6 (01:47→22:55)
[2016-12-16] MEDS: FLAGYL 500 MG/100 ML 500 MG/100 ML BAG IV SCH ×3 (06:44→22:54)
[2016-12-16] MEDS: ZOFRAN IV PRN ×2 (07:55→15:10)
[2016-12-16] MEDS: NACL 0.45% 1000 ML 1,000 ML IV SCH (07:56)
[2016-12-16 07:57] LABS: Anion Gap 18 mmol/L; Blood Urea Nitrogen 15 mg/dL (7-17); Calcium 8.7 mg/dL (8.4-10.2); Carbon Dioxide 24 mmol/L (22-30); Glucose 126 mg/dL (65-100); Potassium 4.7 mmol/L (3.6-5.0); Sodium 137 mmol/L (137-145); Triglycerides 114 mg/dL (2-149)
[2016-12-16] MEDS: HABITROL TD SCH (09:34)
--- NOTE | 2016-12-16 14:03 | Progress Note ---
Assessment and Plan Pt feeling better. had "small BM" KEVON - 40cc Abd soft, minimal tenderness at present stable clinically improving awaiting ID eval continue present care Selected Entries 12/16/16 12/16/16 08:00 11:48 Temperature 98.2 F Pulse Rate [ 71 Brachial] Respiratory 20 Rate Blood Pressure 113/66 [Left Arm] Laboratory Tests 12/16/16 07:06 Sodium 137 Potassium 4.7 Chloride 100.0 BUN 15 Creatinine 0.5 L Objective Vital Signs - 12hr 12/16/16 12/16/16 12/16/16 05:00 05:31 07:55 Temperature 98.4 F Pulse Rate [ 80 Brachial] Respiratory 17 20 Rate Respiratory 18 Rate [Left Abdomen] Blood Pressure 103/63 [Left Arm] O2 Sat by Pulse 100 Oximetry 12/16/16 12/16/16 12/16/16 08:00 08:25 11:18 Temperature 98.2 F Pulse Rate [ 71 Brachial] Respiratory 18 20 20 Rate Respiratory Rate [Left Abdomen] Blood Pressure 113/66 [Left Arm] O2 Sat by Pulse 97 Oximetry 12/16/16 11:48 Temperature Pulse Rate [ Brachial] Respiratory 20 Rate Respiratory Rate [Left Abdomen] Blood Pressure [Left Arm] O2 Sat by Pulse Oximetry - Labs 12/14/16 04:55 12/16/16 07:06 Diabetes panel 12/16/16 Range/Units 07:06 Sodium 137 (137-145) mmol/L Potassium 4.7 (3.6-5.0) mmol/L Chloride 100.0 (98-107) mmol/L Carbon Dioxide 24 (22-30) mmol/L BUN 15 (7-17) mg/dL Creatinine 0.5 L (0.7-1.2) mg/dL Glucose 126 H (65-100) mg/dL Calcium 8.7 (8.4-10.2) mg/dL Triglycerides 114 (2-149) mg/dL Calcium panel 12/16/16 Range/Units 07:06 Calcium 8.7 (8.4-10.2) mg/dL Phosphorus 4.70 H (2.5-4.5) mg/dL Pituitary panel 12/16/16 Range/Units 07:06 Sodium 137 (137-145) mmol/L Potassium 4.7 (3.6-5.0) mmol/L Chloride 100.0 (98-107) mmol/L Carbon Dioxide 24 (22-30) mmol/L BUN 15 (7-17) mg/dL Creatinine 0.5 L (0.7-1.2) mg/dL Glucose 126 H (65-100) mg/dL Calcium 8.7 (8.4-10.2) mg/dL Adrenal panel 12/16/16 Range/Units 07:06 Sodium 137 (137-145) mmol/L Potassium 4.7 (3.6-5.0) mmol/L Chloride 100.0 (98-107) mmol/L Carbon Dioxide 24 (22-30) mmol/L BUN 15 (7-17) mg/dL Creatinine 0.5 L (0.7-1.2) mg/dL Glucose 126 H (65-100) mg/dL Calcium 8.7 (8.4-10.2) mg/dL
[2016-12-16] MEDS ORDERED: INTRALIPID 20% 250 ML IV SCH (20:00)
[2016-12-16] MEDS ORDERED: TPN ADULT 2,016 ML IV SCH (20:00)
[2016-12-16] MEDS: LEVAQUIN 500MG/100ML 500 MG/100 ML BAG IV SCH (22:55)
[2016-12-17] MEDS: FLAGYL 500 MG/100 ML 500 MG/100 ML BAG IV SCH ×2 (05:20→22:46)
[2016-12-17] MEDS: MORPHINE IV PRN ×5 (05:30→23:30)
[2016-12-17 06:31] LABS: Basophils % (Auto) 0.6 % (0.0-1.8); Eosinophils % (Auto) 7.7 % (0.0-4.3); Hematocrit 35.3 % (30.3-42.9); Hemoglobin 11.8 gm/dl (10.1-14.3); Mean Corpuscular HGB Conc 33 % (30-34); Mean Corpuscular Hemoglobin 27 pg (28-32); Mean Corpuscular Volume 82 fl (79-97); Platelet Count 383 K/mm3 (140-440); Red Blood Count 4.32 M/mm3 (3.65-5.03); Red Cell Distribution Width 15.7 % (13.2-15.2); White Blood Count 8.7 K/mm3 (4.5-11.0)
[2016-12-17 06:39] LABS: BUN/Creatinine Ratio 23.33; Blood Urea Nitrogen 14 mg/dL (7-17); Calcium 8.9 mg/dL (8.4-10.2); Carbon Dioxide 28 mmol/L (22-30); Glucose 114 mg/dL (65-100)
[2016-12-17 06:40] LABS: Anion Gap 15 mmol/L; Chloride 97.8 mmol/L (98-107); Potassium 4.9 mmol/L (3.6-5.0); Sodium 136 mmol/L (137-145)
--- NOTE | 2016-12-17 07:28 | Progress Note ---
Assessment and Plan Pt feeling better. Afebrile "less pain" Abd soft, non tender wbc down to 8.7 stable slight L forearm phlebitis (L arm elevation & heating pad) clinically improving diverticulitis awaiting ID eval TPN as per nutrition team Selected Entries 12/17/16 05:49 Temperature 97.4 F L Pulse Rate [ 79 Brachial] Respiratory 18 Rate Blood Pressure 97/64 [Left Arm] Laboratory Tests 12/14/16 12/17/16 12/17/16 04:55 05:30 05:30 WBC 9.4 8.7 Hgb 9.9 L 11.8 Hct 30.2 L 35.3 Sodium 136 L Potassium 4.9 Chloride 97.8 L Carbon Dioxide 28 BUN 14 Creatinine 0.6 L Objective Vital Signs - 12hr 12/16/16 12/17/16 12/17/16 21:51 01:09 05:49 Temperature 97.9 F 98.4 F 97.4 F L Pulse Rate [ 82 75 79 Brachial] Respiratory 20 18 18 Rate Blood Pressure 102/62 104/59 97/64 [Left Arm] O2 Sat by Pulse 97 100 98 Oximetry - Labs 12/17/16 05:30 12/17/16 05:30 Diabetes panel 12/16/16 12/17/16 Range/Units 07:06 05:30 Sodium 137 136 L (137-145) mmol/L Potassium 4.7 4.9 (3.6-5.0) mmol/L Chloride 100.0 97.8 L (98-107) mmol/L Carbon Dioxide 24 28 (22-30) mmol/L BUN 15 14 (7-17) mg/dL Creatinine 0.5 L 0.6 L (0.7-1.2) mg/dL Glucose 126 H 114 H (65-100) mg/dL Calcium 8.7 8.9 (8.4-10.2) mg/dL Triglycerides 114 (2-149) mg/dL Calcium panel 12/16/16 12/17/16 Range/Units 07:06 05:30 Calcium 8.7 8.9 (8.4-10.2) mg/dL Phosphorus 4.70 H 4.40 (2.5-4.5) mg/dL Pituitary panel 12/16/16 12/17/16 Range/Units 07:06 05:30 Sodium 137 136 L (137-145) mmol/L Potassium 4.7 4.9 (3.6-5.0) mmol/L Chloride 100.0 97.8 L (98-107) mmol/L Carbon Dioxide 24 28 (22-30) mmol/L BUN 15 14 (7-17) mg/dL Creatinine 0.5 L 0.6 L (0.7-1.2) mg/dL Glucose 126 H 114 H (65-100) mg/dL Calcium 8.7 8.9 (8.4-10.2) mg/dL Adrenal panel 12/16/16 12/17/16 Range/Units 07:06 05:30 Sodium 137 136 L (137-145) mmol/L Potassium 4.7 4.9 (3.6-5.0) mmol/L Chloride 100.0 97.8 L (98-107) mmol/L Carbon Dioxide 24 28 (22-30) mmol/L BUN 15 14 (7-17) mg/dL Creatinine 0.5 L 0.6 L (0.7-1.2) mg/dL Glucose 126 H 114 H (65-100) mg/dL Calcium 8.7 8.9 (8.4-10.2) mg/dL
--- NOTE | 2016-12-17 08:17 | Consultation ---
History of Present Illness - Reason for Consult Consult date: 12/17/16 Diverticular Abscess Requesting physician: RAMANDEEP CROWDER - History of Present Illness Ms. Coello is a 61-year-old woman recently admitted with diverticulitis with adjacent abscess formation. She was discharged on oral antibiotics, but had increased abdominal pain prompting re-admission for evaluation. CT abd/ pelv revealed sigmoid diverticulitis with a slightly increased collection measuring 4.1 X 4.8 X 4.1 cm. The abscess was percutaneously drained. Wound culture results, presumed to represent culture of abscess drainage, show potentially polymicrobial growth, all Gram positive cocci. She is presently on IV Levaquin and Flagyl, also TPN. A PICC has been placed. ID consultation is requested for further treatment recommendations. Past History Past Medical History: hypertension, other (Divertiulitis) Social history: Lives alone. denies: IV drug use Family history: hypertension Medications and Allergies Allergies Allergy/AdvReac Type Severity Reaction Status Date / Time No Known Allergies Allergy Verified 12/11/16 19:49 Home Medications Medication Instructions Recorded Confirmed Last Taken Type Bisacodyl [Dulcolax suppos] 10 mg HI QDAY PRN #12 supp.rect 12/05/16 12/11/16 12:00 Rx Levofloxacin [Levaquin TAB] 500 mg PO QDAY #7 tablet 12/05/16 12/11/16 12/11/16 12:00 Rx Ondansetron [Zofran TAB] 4 mg PO Q8H PRN #12 tablet 12/05/16 12/11/16 12/11/16 12:00 Rx metroNIDAZOLE [Flagyl TAB] 500 mg PO Q8HR #21 tablet 12/05/16 12/11/16 12/11/16 12:00 Rx Active Meds: Active Medications Acetaminophen/Hydrocodone Bitart (Brooks 5/325) 1 each PO Q4H PRN PRN Reason: Pain, Moderate (4-6) Levofloxacin/Dextrose (Levaquin 500mg/100ml) 500 mg in 100 mls @ 100 mls/hr IV Q24HR@2200 OSMEL PRN Reason: Protocol Last Admin: 12/16/16 22:55 Dose: 100 mls/hr Metronidazole (Flagyl 500 Mg/100 Ml) 500 mg in 100 mls @ 100 mls/hr IV Q8HR [facility] Last Admin: 12/17/16 05:20 Dose: 100 mls/hr Sodium Chloride (Nacl 0.45% 1000 Ml) 1,000 mls @ 42 mls/hr IV DIRECT [facility] Last Admin: 12/16/16 07:56 Dose: 42 mls/hr Amino Acids/Electrolytes/Dextrose (Tpn Adult) 2,016 mls @ 84 mls/hr IV DAILY@ 2000 OSMEL PRN Reason: Protocol Stop: 12/17/16 19:59 Last Admin: 12/16/16 20:59 Dose: 84 mls/hr Morphine Sulfate (Morphine) 4 mg IV Q3H PRN PRN Reason: Pain, Moderate (4-6) Last Admin: 12/17/16 05:30 Dose: 4 mg Nicotine (Habitrol) 14 mg TD QDAY [facility] Last Admin: 12/16/16 09:34 Dose: 14 mg Ondansetron HCl (Zofran) 4 mg IV Q4H PRN PRN Reason: Nausea Last Admin: 12/16/16 15:10 Dose: 4 mg Zolpidem Tartrate (Ambien) 10 mg PO QHS PRN PRN Reason: Insomnia Review of Systems All systems: negative Constitutional: no fever, no chills Cardiovascular: no chest pain, no palpitations, no shortness of breath Respiratory: no cough Gastrointestinal: abdominal pain, nausea, no vomiting, no diarrhea Genitourinary Female: no dysuria Integumentary: no rash, no pruritis Hematologic/Lymphatic: no lymphadenopathy Physical Examination - Constitutional Vitals: Vital Signs Temp Pulse Resp BP Pulse Ox 97.4 F L 79 18 97/64 98 12/17/16 05:49 12/17/16 05:49 12/17/16 05:49 12/17/16 05:49 12/17/16 05:49 Temperature -Last 24 Hours Temperature 97.4 F Temperature 98.4 F Temperature 97.9 F Temperature 97.7 F General appearance: Present: no acute distress - EENT Eyes: Absent: scleral icterus, conjunctival injection ENT: no thrush - Neck Neck: Present: supple - Respiratory Respiratory: bilateral: CTA, negative: rales, rhonchi - Cardiovascular Rhythm: regular Heart Sounds: Present: S1 & S2 - Extremities Extremities: No edema - Abdominal General gastrointestinal: Present: soft, non-distended, other (drains at lower quadrant with serosanguinous output) - Integumentary Integumentary: Absent: jaundice, rash - Psychiatric Psychiatric: appropriate mood/affect - Additional findings Additional findings: PICC left arm with mild erythema distally around wrist, no increased warmth Results - Labs CBC & Chem 7: 12/17/16 05:30 12/17/16 05:30 Labs: Abnormal lab results 12/16/16 12/16/16 12/16/16 Range/Units 11:40 17:11 22:45 MCH (28-32) pg RDW (13.2-15.2) % [place] % (Auto) (0.0-7.3) % Eos % (Auto) (0.0-4.3) % Eos # (0.0-0.4) K/mm3 Sodium (137-145) mmol/L Chloride (98-107) mmol/L Creatinine (0.7-1.2) mg/dL Glucose (65-100) mg/dL POC Glucose 117 H 124 H 120 H (70-105) 12/17/16 12/17/16 Range/Units 05:30 05:30 MCH 27 L (28-32) pg RDW 15.7 H (13.2-15.2) % [place] % (Auto) 7.6 H (0.0-7.3) % Eos % (Auto) 7.7 H (0.0-4.3) % Eos # 0.7 H (0.0-0.4) K/mm3 Sodium 136 L (137-145) mmol/L Chloride 97.8 L (98-107) mmol/L Creatinine 0.6 L (0.7-1.2) mg/dL Glucose 114 H (65-100) mg/dL POC Glucose (70-105) Microbiology 12/14/16 13:20 Abdomen Wound Culture - Final - Imaging and Cardiology CT scan - abdomen: report reviewed CT scan - pelvis: report reviewed Assessment and Plan - Patient Problems (1) Diverticulitis of intestine with abscess Current Visit: Yes Status: Acute Qualifiers: Diverticulitis site: D Diverticulitis bleeding: D Plan to address problem: 1. Adding Linezolid for empiric Gram positive coverage. Question if species pending identification is Enterococcus, perhaps Vancomycin-resistant. 2. Present micro results are noted to be final. I will clarify this and recommend keeping patient until culture and sensitivity data are known. Vancomycin or Telavancin are likely options that are more feasible than Linezolid. I will then assist in getting OPAT arranged. 3. A repeat CT abd/ pelv is recommended in 7-10 days, prior to stopping antibiotics. Duration may require extension beyond 2 weeks. 4. UPT toward approval potentially of Telavancin.
[2016-12-17] MEDS: ZOFRAN IV PRN ×2 (08:49→20:04)
[2016-12-17] MEDS: NACL 0.45% 1000 ML 1,000 ML IV SCH (08:49)
[2016-12-17] MEDS ORDERED: ZYVOX PO SCH (10:00)
[2016-12-17] MEDS: ZYVOX 600MG/300ML 600 MG/300 ML BAG IV SCH ×2 (13:55→23:47)
[2016-12-17] MEDS ORDERED: TPN ADULT 2,016 ML IV SCH (20:00)
[2016-12-17] MEDS: LEVAQUIN 500MG/100ML 500 MG/100 ML BAG IV SCH (23:33)
[2016-12-18] MEDS: FLAGYL 500 MG/100 ML 500 MG/100 ML BAG IV SCH ×4 (01:25→20:59)
[2016-12-18] MEDS: HABITROL TD SCH ×2 (01:25→11:18)
[2016-12-18] MEDS: MORPHINE IV PRN ×5 (05:52→23:52)
--- NOTE | 2016-12-18 07:47 | Progress Note ---
Assessment and Plan Pt feeling well without compl Abd soft ID eval appreciated antibiotics as per ID will repeat CT midweek Selected Entries 12/18/16 05:41 Temperature 97.8 F Pulse Rate [ 74 Brachial] Respiratory 20 Rate Blood Pressure 94/55 [Left Arm] Objective Vital Signs - 12hr 12/17/16 12/18/16 12/18/16 21:29 01:13 05:41 Temperature 98.2 F 96.3 F L 97.8 F Pulse Rate [ 72 86 74 Brachial] Respiratory 20 17 20 Rate Blood Pressure 105/67 103/72 94/55 [Left Arm] O2 Sat by Pulse 99 98 97 Oximetry - Labs 12/17/16 05:30 12/17/16 05:30
--- NOTE | 2016-12-18 08:11 | Progress Note ---
Assessment and Plan - Patient Problems (1) Diverticulitis of intestine with abscess Current Visit: Yes Status: Acute Qualifiers: Diverticulitis site: large intestine Diverticulitis bleeding: unspecified bleeding status Qualified Code(s): K57.20 - Diverticulitis of large intestine with perforation and abscess without bleeding Plan to address problem: 1. Per micro lab personnel, culture was presumed to be skin honey and no further work-up was done beyond Gram staining. 2. Recommend continued Linezolid, Levaquin and Flagyl (IV or oral route) to complete a minimum course through December 29, 2016. Patient can take the same regimen at the same doses orally once she can take PO meds. 3. Recommend repeat CT abd/ pelv prior to discontinuing antibiotics. 4. I am writing OPAT orders and requesting assistance from case management to arrange home infusion. 5. Patient will require heavy support from family as there are many antibiotics with frequent dosing. She expressed concern that the dosing may be too frequent to maintain. LTAC placement may be more feasible. Subjective Date of service: 12/18/16 Principal diagnosis: Diverticular Abscess Interval history: Afebrile. No new clinical events. Objective - Constitutional Vitals: Vital Signs Temp Pulse Resp BP Pulse Ox 97.8 F 74 20 94/55 97 12/18/16 05:41 12/18/16 05:41 12/18/16 05:41 12/18/16 05:41 12/18/16 05:41 Temperature -Last 24 Hours Temperature 97.8 F Temperature 96.3 F Temperature 98.2 F Temperature 98.5 F General appearance: Present: no acute distress - EENT ENT: edentulous - Respiratory Respiratory effort: normal Respiratory: bilateral: CTA - Cardiovascular Rhythm: regular Heart Sounds: Present: S1 & S2 - Gastrointestinal General gastrointestinal: Present: soft, non-distended, other (KEVON drain with thin, serosanguinous output) - Integumentary Integumentary: clear, no rash - Neurologic Neurologic: moves all extremities - Psychiatric Psychiatric: appropriate mood/affect - Additional findings Additional findings: Microbiology 12/14/16 13:20 Abdomen Wound Culture - Final - Labs CBC & Chem 7: 12/17/16 05:30 12/17/16 05:30 Labs: Abnormal lab results 07/13/17 07/13/17 07/13/17 Range/Units 07:30 12:08 17:14 POC Glucose 131 H 111 H 106 H (70-105) 12/18/16 Range/Units 07:48 POC Glucose 141 H (70-105)
[2016-12-18] MEDS: ZYVOX 600MG/300ML 600 MG/300 ML BAG IV SCH ×2 (11:20→22:43)
[2016-12-18 11:21] LABS: Anion Gap 17 mmol/L; Blood Urea Nitrogen 13 mg/dL (7-17); Carbon Dioxide 26 mmol/L (22-30); Chloride 99.1 mmol/L (98-107); Glucose 105 mg/dL (65-100); Sodium 138 mmol/L (137-145)
[2016-12-18] MEDS: NACL 0.45% 1000 ML 1,000 ML IV SCH (11:24)
[2016-12-18] MEDS ORDERED: INTRALIPID 20% 250 ML IV SCH (20:00)
[2016-12-18] MEDS ORDERED: TPN ADULT 2,016 ML IV SCH (20:00)
[2016-12-18] MEDS: LEVAQUIN 500MG/100ML 500 MG/100 ML BAG IV SCH (22:00)
--- NOTE | 2016-12-19 05:18 | Progress Note ---
Assessment and Plan Pt status quo. no new compl. drainage 30 cc Abd soft ID note noted clinically stable case management continue present care repeat CT midweek Selected Entries 12/18/16 22:58 Temperature 98.2 F Pulse Rate [ 77 Brachial] Respiratory 18 Rate Blood Pressure 101/58 [Left Arm] Objective Vital Signs - 12hr 12/18/16 22:58 Temperature 98.2 F Pulse Rate [ 77 Brachial] Respiratory 18 Rate Blood Pressure 101/58 [Left Arm] O2 Sat by Pulse 99 Oximetry - Labs 12/17/16 05:30 12/18/16 10:44 Diabetes panel 12/18/16 Range/Units 10:44 Sodium 138 (137-145) mmol/L Potassium 4.0 (3.6-5.0) mmol/L Chloride 99.1 (98-107) mmol/L Carbon Dioxide 26 (22-30) mmol/L BUN 13 (7-17) mg/dL Creatinine 0.5 L (0.7-1.2) mg/dL Glucose 105 H (65-100) mg/dL Calcium 9.0 (8.4-10.2) mg/dL Calcium panel 12/18/16 12/18/16 Range/Units 10:44 10:44 Calcium 9.0 (8.4-10.2) mg/dL Phosphorus 4.00 (2.5-4.5) mg/dL Pituitary panel 12/18/16 Range/Units 10:44 Sodium 138 (137-145) mmol/L Potassium 4.0 (3.6-5.0) mmol/L Chloride 99.1 (98-107) mmol/L Carbon Dioxide 26 (22-30) mmol/L BUN 13 (7-17) mg/dL Creatinine 0.5 L (0.7-1.2) mg/dL Glucose 105 H (65-100) mg/dL Calcium 9.0 (8.4-10.2) mg/dL Adrenal panel 12/18/16 Range/Units 10:44 Sodium 138 (137-145) mmol/L Potassium 4.0 (3.6-5.0) mmol/L Chloride 99.1 (98-107) mmol/L Carbon Dioxide 26 (22-30) mmol/L BUN 13 (7-17) mg/dL Creatinine 0.5 L (0.7-1.2) mg/dL Glucose 105 H (65-100) mg/dL Calcium 9.0 (8.4-10.2) mg/dL
[2016-12-19] MEDS: MORPHINE IV PRN ×5 (06:10→23:25)
[2016-12-19] MEDS: ZOFRAN IV PRN ×3 (06:10→20:00)
[2016-12-19] MEDS: FLAGYL 500 MG/100 ML 500 MG/100 ML BAG IV SCH ×3 (06:10→21:49)
--- NOTE | 2016-12-19 08:13 | Progress Note ---
Assessment and Plan - Patient Problems (1) Diverticulitis of intestine with abscess Current Visit: Yes Status: Acute Qualifiers: Diverticulitis site: large intestine Diverticulitis bleeding: unspecified bleeding status Qualified Code(s): K57.20 - Diverticulitis of large intestine with perforation and abscess without bleeding Plan to address problem: 1. Continue current antibiotic regimen. 2. Micro lab agreed to further speciate organisms from drainage culture. 3. Planned follow-up CT abd/ pelv next week. Subjective Date of service: 12/19/16 Principal diagnosis: Diverticular Abscess Interval history: Afebrile. No new events. Objective - Constitutional Vitals: Vital Signs Temp Pulse Resp BP Pulse Ox 98.2 F 77 18 101/58 99 12/18/16 22:58 12/18/16 22:58 12/18/16 22:58 12/18/16 22:58 12/18/16 22:58 Temperature -Last 24 Hours Temperature 98.2 F Temperature 98 F General appearance: Present: no acute distress - Respiratory Respiratory effort: normal Respiratory: bilateral: CTA - Cardiovascular Rhythm: regular Heart Sounds: Present: S1 & S2 - Gastrointestinal General gastrointestinal: Present: soft, non-distended, other (serosanguinous output with presently empty drain bulb) - Integumentary Integumentary: clear, no rash - Additional findings Additional findings: PICC left arm without surrounding inflammation; stable area of erythema/ induration at left forearm - Labs CBC & Chem 7: 12/17/16 05:30 12/18/16 10:44 Labs: Abnormal lab results 12/18/16 12/18/16 Range/Units 10:44 11:23 Creatinine 0.5 L (0.7-1.2) mg/dL Glucose 105 H (65-100) mg/dL POC Glucose 125 H (70-105) Microbiology 12/14/16 13:20 Abdomen Wound Culture - Preliminary
[2016-12-19] MEDS: ZYVOX 600MG/300ML 600 MG/300 ML BAG IV SCH (12:09)
[2016-12-19] MEDS: HABITROL TD SCH (12:10)
[2016-12-19 14:21] LABS: Anion Gap 16 mmol/L; BUN/Creatinine Ratio 23.33; Blood Urea Nitrogen 14 mg/dL (7-17); Calcium 8.5 mg/dL (8.4-10.2); Carbon Dioxide 27 mmol/L (22-30); Chloride 100.6 mmol/L (98-107); Glucose 174 mg/dL (65-100); Potassium 4.1 mmol/L (3.6-5.0); Sodium 139 mmol/L (137-145)
[2016-12-19] MEDS: NACL 0.45% 1000 ML 1,000 ML IV SCH (19:49)
[2016-12-19] MEDS ORDERED: TPN ADULT 2,016 ML IV SCH (20:00)
[2016-12-19] MEDS: LEVAQUIN 500MG/100ML 500 MG/100 ML BAG IV SCH (23:20)
[2016-12-20] MEDS: ZYVOX 600MG/300ML 600 MG/300 ML BAG IV SCH ×3 (00:27→23:50)
[2016-12-20] MEDS: MORPHINE IV PRN ×7 (03:10→23:30)
[2016-12-20] MEDS: FLAGYL 500 MG/100 ML 500 MG/100 ML BAG IV SCH ×3 (06:02→21:05)
[2016-12-20] MEDS: HABITROL TD SCH (09:45)
[2016-12-20] MEDS: ZOFRAN IV PRN ×3 (10:14→23:30)
--- NOTE | 2016-12-20 14:40 | Progress Note ---
Assessment and Plan Pt status quo. no new compl KEVON - 30cc cloudy fluid but no pus Abd soft, non tender stable f/u CT on tues antibiotics as per ID Selected Entries 12/20/16 07:42 Temperature 98.5 F Pulse Rate [ 66 Brachial] Respiratory 18 Rate Blood Pressure 94/50 [Left Arm] Objective Vital Signs - 12hr 12/20/16 12/20/16 12/20/16 03:10 03:40 06:00 Temperature Pulse Rate [ Apical] Pulse Rate [ Brachial] Respiratory 20 18 20 Rate Blood Pressure [Left Arm] O2 Sat by Pulse Oximetry 12/20/16 07:42 Temperature 98.5 F Pulse Rate [ 66 Apical] Pulse Rate [ 66 Brachial] Respiratory 18 Rate Blood Pressure 94/50 [Left Arm] O2 Sat by Pulse 97 Oximetry - Labs 12/17/16 05:30 12/19/16 13:18
[2016-12-20] MEDS ORDERED: TPN ADULT 2,016 ML IV SCH (20:00)
[2016-12-20] MEDS: LEVAQUIN 500MG/100ML 500 MG/100 ML BAG IV SCH (22:31)
[2016-12-21] MEDS: MORPHINE IV PRN ×4 (06:27→21:29)
[2016-12-21] MEDS: FLAGYL 500 MG/100 ML 500 MG/100 ML BAG IV SCH ×3 (06:28→21:29)
[2016-12-21] MEDS: NACL 0.45% 1000 ML 1,000 ML IV SCH (06:31)
[2016-12-21 06:46] LABS: Basophils % (Auto) 0.6 % (0.0-1.8); Eosinophils % (Auto) 6.3 % (0.0-4.3); Hematocrit 32.8 % (30.3-42.9); Mean Corpuscular HGB Conc 34 % (30-34); Mean Corpuscular Hemoglobin 27 pg (28-32); Mean Corpuscular Volume 81 fl (79-97); Platelet Count 333 K/mm3 (140-440); Red Blood Count 4.04 M/mm3 (3.65-5.03); Red Cell Distribution Width 15.1 % (13.2-15.2); White Blood Count 8.4 K/mm3 (4.5-11.0)
[2016-12-21 06:47] LABS: Anion Gap 16 mmol/L; BUN/Creatinine Ratio 23.33; Blood Urea Nitrogen 14 mg/dL (7-17); Calcium 8.3 mg/dL (8.4-10.2); Carbon Dioxide 25 mmol/L (22-30); Chloride 103.6 mmol/L (98-107); Glucose 120 mg/dL (65-100); Potassium 4.3 mmol/L (3.6-5.0); Sodium 140 mmol/L (137-145)
[2016-12-21] MEDS: ZYVOX 600MG/300ML 600 MG/300 ML BAG IV SCH ×2 (10:26→23:00)
[2016-12-21] MEDS: HABITROL TD SCH (10:26)
--- NOTE | 2016-12-21 13:52 | Progress Note ---
Assessment and Plan Pt feeling well no specific compl Abd soft, non tender for f/u CT in am possible attempt at po diet tomorrow pending CT findings also case management to be aware of possible home health arrangements for TPN & or IV antibiotics pending CT results Selected Entries 12/21/16 07:53 Temperature 98.1 F Pulse Rate [ 71 Apical] Respiratory 18 Rate Blood Pressure 106/65 [Left Arm] Laboratory Tests 12/17/16 12/21/16 12/21/16 05:30 06:13 06:13 WBC 8.7 8.4 Hgb 11.8 11.0 Hct 35.3 32.8 Sodium 140 Potassium 4.3 Chloride 103.6 Carbon Dioxide 25 BUN 14 Creatinine 0.6 L Objective Vital Signs - 12hr 12/21/16 12/21/16 04:44 07:53 Temperature 98.3 F 98.1 F Pulse Rate [ 78 71 Apical] Pulse Rate [ 78 71 Brachial] Respiratory 20 18 Rate Blood Pressure 103/69 106/65 [Left Arm] O2 Sat by Pulse 97 96 Oximetry - Labs 12/21/16 06:13 12/21/16 06:13 Diabetes panel 12/21/16 Range/Units 06:13 Sodium 140 (137-145) mmol/L Potassium 4.3 (3.6-5.0) mmol/L Chloride 103.6 (98-107) mmol/L Carbon Dioxide 25 (22-30) mmol/L BUN 14 (7-17) mg/dL Creatinine 0.6 L (0.7-1.2) mg/dL Glucose 120 H (65-100) mg/dL Calcium 8.3 L (8.4-10.2) mg/dL Calcium panel 12/21/16 Range/Units 06:13 Calcium 8.3 L (8.4-10.2) mg/dL Phosphorus 4.20 (2.5-4.5) mg/dL Pituitary panel 12/21/16 Range/Units 06:13 Sodium 140 (137-145) mmol/L Potassium 4.3 (3.6-5.0) mmol/L Chloride 103.6 (98-107) mmol/L Carbon Dioxide 25 (22-30) mmol/L BUN 14 (7-17) mg/dL Creatinine 0.6 L (0.7-1.2) mg/dL Glucose 120 H (65-100) mg/dL Calcium 8.3 L (8.4-10.2) mg/dL Adrenal panel 12/21/16 Range/Units 06:13 Sodium 140 (137-145) mmol/L Potassium 4.3 (3.6-5.0) mmol/L Chloride 103.6 (98-107) mmol/L Carbon Dioxide 25 (22-30) mmol/L BUN 14 (7-17) mg/dL Creatinine 0.6 L (0.7-1.2) mg/dL Glucose 120 H (65-100) mg/dL Calcium 8.3 L (8.4-10.2) mg/dL
--- NOTE | 2016-12-21 13:57 | Progress Note ---
Assessment and Plan - Patient Problems (1) Diverticulitis of intestine with abscess Current Visit: Yes Status: Acute Qualifiers: Diverticulitis site: large intestine Diverticulitis bleeding: unspecified bleeding status Qualified Code(s): K57.20 - Diverticulitis of large intestine with perforation and abscess without bleeding Plan to address problem: 1. Continue same intravenous antibiotic management for now. Expect that diverticular abscess is polymicrobial, not solely Staph epi. 2. Repeat CT abd/ pelv planned for tomorrow. May transition to oral meds based on CT findings. Subjective Date of service: 12/21/16 Principal diagnosis: Diverticular Abscess Interval history: Afebrile. No new complaints. Objective - Constitutional Vitals: Vital Signs Temp Pulse Resp BP Pulse Ox 98.1 F 71 18 106/65 96 12/21/16 07:53 12/21/16 07:53 12/21/16 07:53 12/21/16 07:53 12/21/16 07:53 Temperature -Last 24 Hours Temperature 98.1 F Temperature 98.3 F Temperature 98.2 F Temperature 98.1 F Temperature 98.2 F Temperature 97.7 F General appearance: Present: no acute distress, other (talking on telephone) - EENT Eyes: no scleral icterus - Respiratory Respiratory effort: normal Respiratory: bilateral: CTA - Cardiovascular Rhythm: regular Heart Sounds: Present: S1 & S2 Extremities: No edema - Gastrointestinal General gastrointestinal: Present: soft, non-distended, other (drain with seropurulent output) - Integumentary Integumentary: clear, no rash - Neurologic Neurologic: moves all extremities - Labs CBC & Chem 7: 12/21/16 06:13 12/21/16 06:13 Labs: Abnormal lab results 12/20/16 12/20/16 12/21/16 Range/Units 11:22 17:03 00:32 MCH (28-32) pg [place] % (Auto) (0.0-7.3) % Eos % (Auto) (0.0-4.3) % Eos # (0.0-0.4) K/mm3 Creatinine (0.7-1.2) mg/dL Glucose (65-100) mg/dL POC Glucose 119 H 106 H 126 H (70-105) Calcium (8.4-10.2) mg/dL 12/21/16 12/21/16 12/21/16 Range/Units 06:13 06:13 06:44 MCH 27 L (28-32) pg [place] % (Auto) 7.7 H (0.0-7.3) % Eos % (Auto) 6.3 H (0.0-4.3) % Eos # 0.5 H (0.0-0.4) K/mm3 Creatinine 0.6 L (0.7-1.2) mg/dL Glucose 120 H (65-100) mg/dL POC Glucose 120 H (70-105) Calcium 8.3 L (8.4-10.2) mg/dL 12/21/16 12/21/16 Range/Units 07:41 12:44 MCH (28-32) pg [place] % (Auto) (0.0-7.3) % Eos % (Auto) (0.0-4.3) % Eos # (0.0-0.4) K/mm3 Creatinine (0.7-1.2) mg/dL Glucose (65-100) mg/dL POC Glucose 130 H 113 H (70-105) Calcium (8.4-10.2) mg/dL Microbiology 12/14/16 13:20 Abdomen Wound Culture - Preliminary Staphylococcus Epidermidis
[2016-12-21] MEDS: ZOFRAN IV PRN ×2 (16:22→21:28)
[2016-12-21] MEDS ORDERED: TPN ADULT 2,016 ML IV SCH (20:00)
[2016-12-21] MEDS ORDERED: INTRALIPID 20% 250 ML IV SCH (20:00)
[2016-12-21] MEDS: LEVAQUIN 500MG/100ML 500 MG/100 ML BAG IV SCH (23:55)
[2016-12-22] MEDS: MORPHINE IV PRN ×6 (00:37→20:16)
[2016-12-22] MEDS: LEVAQUIN 500MG/100ML 500 MG/100 ML BAG IV SCH (01:00)
[2016-12-22] MEDS ORDERED: LEVAQUIN 500MG/100ML 500 MG/100 ML BAG IV SCH (02:00)
[2016-12-22 07:40] LABS: Alanine Aminotransferase 11 units/L (7-56); Albumin 2.8 g/dL (3.9-5); Albumin/Globulin Ratio 0.9 %; Alkaline Phosphatase 83 units/L (35-129); Anion Gap 17 mmol/L; Blood Urea Nitrogen 13 mg/dL (7-17); Calcium 8.2 mg/dL (8.4-10.2); Carbon Dioxide 26 mmol/L (22-30); Chloride 101.1 mmol/L (98-107); Glucose 107 mg/dL (65-100); Potassium 3.8 mmol/L (3.6-5.0); Sodium 140 mmol/L (137-145); Total Protein 5.9 g/dL (6.3-8.2)
--- NOTE | 2016-12-22 08:41 | Progress Note ---
Assessment and Plan Pt afebrile status quo. no compl Abd soft. for f/u CT this am Selected Entries 12/22/16 07:58 Temperature 97.8 F Respiratory 18 Rate O2 Sat by Pulse 95 Oximetry Blood Pressure 108/63 [Left Arm] Objective Vital Signs - 12hr 12/21/16 12/21/16 12/21/16 21:29 21:59 22:00 Temperature Pulse Rate [ 77 Apical] Pulse Rate [ 77 Brachial] Respiratory 17 17 Rate Respiratory Rate [Left Abdomen] Blood Pressure [Left Arm] O2 Sat by Pulse 97 Oximetry 12/22/16 12/22/16 01:00 07:58 Temperature 97.8 F Pulse Rate [ 71 Apical] Pulse Rate [ 71 Brachial] Respiratory 18 Rate Respiratory 16 Rate [Left Abdomen] Blood Pressure 108/63 [Left Arm] O2 Sat by Pulse 95 Oximetry - Labs 12/21/16 06:13 12/22/16 05:48 Diabetes panel 12/22/16 Range/Units 05:48 Sodium 140 (137-145) mmol/L Potassium 3.8 (3.6-5.0) mmol/L Chloride 101.1 (98-107) mmol/L Carbon Dioxide 26 (22-30) mmol/L BUN 13 (7-17) mg/dL Creatinine 0.5 L (0.7-1.2) mg/dL Glucose 107 H (65-100) mg/dL Calcium 8.2 L (8.4-10.2) mg/dL AST 13 (5-40) units/L ALT 11 (7-56) units/L Alkaline Phosphatase 83 (35-129) units/L Total Protein 5.9 L (6.3-8.2) g/dL Albumin 2.8 L (3.9-5) g/dL Calcium panel 12/22/16 Range/Units 05:48 Calcium 8.2 L (8.4-10.2) mg/dL Phosphorus 3.90 (2.5-4.5) mg/dL Albumin 2.8 L (3.9-5) g/dL Pituitary panel 12/22/16 Range/Units 05:48 Sodium 140 (137-145) mmol/L Potassium 3.8 (3.6-5.0) mmol/L Chloride 101.1 (98-107) mmol/L Carbon Dioxide 26 (22-30) mmol/L BUN 13 (7-17) mg/dL Creatinine 0.5 L (0.7-1.2) mg/dL Glucose 107 H (65-100) mg/dL Calcium 8.2 L (8.4-10.2) mg/dL Adrenal panel 12/22/16 Range/Units 05:48 Sodium 140 (137-145) mmol/L Potassium 3.8 (3.6-5.0) mmol/L Chloride 101.1 (98-107) mmol/L Carbon Dioxide 26 (22-30) mmol/L BUN 13 (7-17) mg/dL Creatinine 0.5 L (0.7-1.2) mg/dL Glucose 107 H (65-100) mg/dL Calcium 8.2 L (8.4-10.2) mg/dL Total Bilirubin 0.20 (0.1-1.2) mg/dL AST 13 (5-40) units/L ALT 11 (7-56) units/L Alkaline Phosphatase 83 (35-129) units/L Total Protein 5.9 L (6.3-8.2) g/dL Albumin 2.8 L (3.9-5) g/dL
--- NOTE | 2016-12-22 08:41 | Progress Note ---
Assessment and Plan - Patient Problems (1) Diverticulitis of intestine with abscess Current Visit: Yes Status: Acute Qualifiers: Diverticulitis site: large intestine Diverticulitis bleeding: unspecified bleeding status Qualified Code(s): K57.20 - Diverticulitis of large intestine with perforation and abscess without bleeding Plan to address problem: 1. Await findings of repeat CT abdomen/ pelvis. 2. If patient is able to tolerate PO meds, please change to Linezolid 600mg PO q12h; Levaquin 750mg PO daily and Flagyl 500mg PO q8h to continue through minimally through December 29, 2016. 3. Antibiotic stop date may be extended if the size of the intra-abdominal collection remains >1 cm in any dimension. Subjective Date of service: 12/22/16 Principal diagnosis: Diverticular Abscess Interval history: Remains stable, afebrile. For repeat CT imaging of abdomen/ pelvis. Nausea, without emesis. Objective - Constitutional Vitals: Vital Signs Temp Pulse Resp BP Pulse Ox 97.8 F 71 18 108/63 95 12/22/16 07:58 12/22/16 07:58 12/22/16 07:58 12/22/16 07:58 12/22/16 07:58 Temperature -Last 24 Hours Temperature 97.8 F Temperature 98.2 F Temperature 98.2 F General appearance: Present: no acute distress, other (lying on left side with emesis gonzalez near) - EENT Eyes: no scleral icterus, conjunctival injection - Neck Neck: supple - Respiratory Respiratory effort: normal Respiratory: bilateral: CTA - Cardiovascular Rhythm: regular Heart Sounds: Present: S1 & S2 - Gastrointestinal General gastrointestinal: Present: soft, non-distended, other (drain with small amount of serous output) - Integumentary Integumentary: no jaundice, no rash - Neurologic Neurologic: moves all extremities - Labs CBC & Chem 7: 12/21/16 06:13 12/22/16 05:48 Labs: Abnormal lab results 12/21/16 12/21/16 12/22/16 Range/Units 12:44 18:13 00:42 Creatinine (0.7-1.2) mg/dL Glucose (65-100) mg/dL POC Glucose 113 H 107 H 116 H (70-105) Calcium (8.4-10.2) mg/dL Total Protein (6.3-8.2) g/dL Albumin (3.9-5) g/dL 12/22/16 Range/Units 05:48 Creatinine 0.5 L (0.7-1.2) mg/dL Glucose 107 H (65-100) mg/dL POC Glucose (70-105) Calcium 8.2 L (8.4-10.2) mg/dL Total Protein 5.9 L (6.3-8.2) g/dL Albumin 2.8 L (3.9-5) g/dL Microbiology 12/14/16 13:20 Abdomen Wound Culture - Final Staphylococcus Epidermidis Staphylococcus Epidermidis#3
[2016-12-22] MEDS: NACL 0.45% 1000 ML 1,000 ML IV SCH (08:52)
[2016-12-22] MEDS: HABITROL TD SCH (09:25)
[2016-12-22] MEDS: FLAGYL 500 MG/100 ML 500 MG/100 ML BAG IV SCH ×2 (09:25→17:13)
--- NOTE | 2016-12-22 10:46 | Cat Scan Report ---
CT SCAN OF THE ABDOMEN AND PELVIS WITH CONTRAST: HISTORY: Followup diverticular abscess. TECHNIQUE: Helical CT in 1.25mm intervals following IV contrast. Sagittal and coronal reconstructions. FINDINGS: Compared to 12/11/16. A percutaneous drain has been placed in the diverticular abscess since the comparison exam. There is near complete resolution of the diverticular abscess. The collection has decreased from 4.9 x 4.3 cm to 1.4 x 1.1 cm in axial plane. No new areas of inflammation are appreciated. Diverticulitis of the sigmoid colon continues to improve. The remainder of the examination is unchanged since 12/11/16. IMPRESSION: Near resolution of the diverticular abscess as described.
[2016-12-22] MEDS: ZYVOX 600MG/300ML 600 MG/300 ML BAG IV SCH ×2 (11:00→21:30)
[2016-12-22] MEDS: ZOFRAN IV PRN ×2 (12:50→17:19)
--- NOTE | 2016-12-22 13:41 | Progress Note ---
Assessment and Plan Pt feeling well Abd soft, non tender CT still some surrounding inflammatory changes around sigmoid colon but abscess almost completely resolved. clinically asymptomatic will attempt cl liq diet antibiotics as per ID d/c drain as per IR Objective Vital Signs - 12hr 12/22/16 12/22/16 07:58 12:55 Temperature 97.8 F Pulse Rate [ 71 Apical] Pulse Rate [ 71 Brachial] Respiratory 18 Rate Respiratory 16 Rate [Left Abdomen] Blood Pressure 108/63 [Left Arm] O2 Sat by Pulse 95 Oximetry - Labs 12/21/16 06:13 12/22/16 05:48 Diabetes panel 12/22/16 Range/Units 05:48 Sodium 140 (137-145) mmol/L Potassium 3.8 (3.6-5.0) mmol/L Chloride 101.1 (98-107) mmol/L Carbon Dioxide 26 (22-30) mmol/L BUN 13 (7-17) mg/dL Creatinine 0.5 L (0.7-1.2) mg/dL Glucose 107 H (65-100) mg/dL Calcium 8.2 L (8.4-10.2) mg/dL AST 13 (5-40) units/L ALT 11 (7-56) units/L Alkaline Phosphatase 83 (35-129) units/L Total Protein 5.9 L (6.3-8.2) g/dL Albumin 2.8 L (3.9-5) g/dL Calcium panel 12/22/16 Range/Units 05:48 Calcium 8.2 L (8.4-10.2) mg/dL Phosphorus 3.90 (2.5-4.5) mg/dL Albumin 2.8 L (3.9-5) g/dL Pituitary panel 12/22/16 Range/Units 05:48 Sodium 140 (137-145) mmol/L Potassium 3.8 (3.6-5.0) mmol/L Chloride 101.1 (98-107) mmol/L Carbon Dioxide 26 (22-30) mmol/L BUN 13 (7-17) mg/dL Creatinine 0.5 L (0.7-1.2) mg/dL Glucose 107 H (65-100) mg/dL Calcium 8.2 L (8.4-10.2) mg/dL Adrenal panel 12/22/16 Range/Units 05:48 Sodium 140 (137-145) mmol/L Potassium 3.8 (3.6-5.0) mmol/L Chloride 101.1 (98-107) mmol/L Carbon Dioxide 26 (22-30) mmol/L BUN 13 (7-17) mg/dL Creatinine 0.5 L (0.7-1.2) mg/dL Glucose 107 H (65-100) mg/dL Calcium 8.2 L (8.4-10.2) mg/dL Total Bilirubin 0.20 (0.1-1.2) mg/dL AST 13 (5-40) units/L ALT 11 (7-56) units/L Alkaline Phosphatase 83 (35-129) units/L Total Protein 5.9 L (6.3-8.2) g/dL Albumin 2.8 L (3.9-5) g/dL
[2016-12-22] MEDS ORDERED: TPN ADULT 2,016 ML IV SCH (20:00)
[2016-12-22] MEDS: AMBIEN PO PRN (21:44)
[2016-12-23] MEDS: FLAGYL 500 MG/100 ML 500 MG/100 ML BAG IV SCH ×3 (02:35→17:38)
[2016-12-23] MEDS: LEVAQUIN 750MG/150ML 750 MG/150 ML BAG IV SCH (04:23)
[2016-12-23] MEDS: MORPHINE IV PRN ×6 (04:54→23:23)
[2016-12-23 07:39] LABS: Anion Gap 16 mmol/L; Blood Urea Nitrogen 13 mg/dL (7-17); Calcium 8.8 mg/dL (8.4-10.2); Carbon Dioxide 29 mmol/L (22-30); Glucose 105 mg/dL (65-100); Potassium 5.1 mmol/L (3.6-5.0); Sodium 139 mmol/L (137-145); Triglycerides 84 mg/dL (2-149)
--- NOTE | 2016-12-23 07:59 | Progress Note ---
Assessment and Plan - Patient Problems (1) Diverticulitis of intestine with abscess Current Visit: Yes Status: Acute Qualifiers: Diverticulitis site: large intestine Diverticulitis bleeding: unspecified bleeding status Qualified Code(s): K57.20 - Diverticulitis of large intestine with perforation and abscess without bleeding Plan to address problem: 1. Would continue same triple therapy through January 03, 2017. 2. The oral equivalent of these antibiotics can be given once patient is allowed PO intake. 3. Case management assistance is recommended to obtain oral Linezolid, which I requested last week. Subjective Date of service: 12/23/16 Principal diagnosis: Diverticular Abscess Interval history: Remains afebrile, stable. CT abd/ pelv completed yesterday showing small residual collection. Patient is for removal of drainage catheter today. Objective - Exam Narrative Exam: Patient is presently off floor for procedure. - Constitutional Vitals: Vital Signs Temp Pulse Resp BP Pulse Ox 98.3 F 18 L 18 122/69 97 12/22/16 22:13 12/22/16 22:13 12/22/16 22:13 12/22/16 22:13 12/22/16 22:13 Temperature -Last 24 Hours Temperature 98.3 F Temperature 98.1 F Temperature 97.8 F - Labs CBC & Chem 7: 12/21/16 06:13 12/23/16 06:50 Labs: Abnormal lab results 12/23/16 Range/Units 06:50 Potassium 5.1 H D (3.6-5.0) mmol/L Creatinine 0.5 L (0.7-1.2) mg/dL Glucose 105 H (65-100) mg/dL - Imaging and cardiology CT scan - abdomen: report reviewed (near complete resolution of diverticular abscess, now 1.4 X 1.1 cm)
[2016-12-23] MEDS: ZOFRAN IV PRN ×4 (08:16→23:23)
--- NOTE | 2016-12-23 09:01 | Event Note ---
Date: 12/23/[address] shows collection has mostly resolved. Pt feels better overall and is afebrile. I will bring the patient down to the orthodontic lab technician for a drain check and likely d/c the drain. Pt does not need to be NPO.
[2016-12-23] MEDS: HABITROL TD SCH (09:23)
[2016-12-23] MEDS ORDERED: NACL 0.9% 500 ML IR ONE (10:06)
[2016-12-23] MEDS ORDERED: XYLOCAINE 2% INFILTRATI ONE (10:06)
[2016-12-23] MEDS ORDERED: SUBLIMAZE ONE (10:06)
[2016-12-23] MEDS ORDERED: NACL 0.9% 250ML 250 ML ONE (10:06)
[2016-12-23] MEDS ORDERED: ANCEF/STERILE WATER 2 GM/20 ML 0 GM/0 ML SYRINGE IV ONE (10:07)
--- NOTE | 2016-12-23 10:48 | Operative Report ---
Operative Report Operative Report: Procedure: 1. Training check with imaging of a residual intra-abdominal abscess. 2. Successful removal of an abscess drainage catheter. Date of Procedure: 12/23/2016 History/Indication: This is a 61-year-old female who underwent percutaneous placement of a pelvic abscess drainage catheter to address a diverticular abscess. Recently the patient has felt well, and has been afebrile with a normal white blood cell count. Drainage from the catheter over the last 2 days has been less than 10 mL. Physician: Marino Astudillo MD Technique/Procedural Details: The patient was placed in the supine position on the procedure table. A timeout was performed. The indwelling drainage catheter was injected with contrast. Based on the imaging, the patient was prepped and draped in the usual sterile fashion. The sutures and the drain were cut. An Amplatz wire was advanced through the cut drained, and a vertebral catheter was advanced. Injection of contrast to the vertebral catheter was performed, and images were acquired. Based on the imaging, all catheters and wires were removed. A dressing was placed, and the patient was transported back to her room in good condition. Discussion: There has been resolution of an intra-abdominal abscess since prior imaging. Initial imaging demonstrates the catheter to be slightly malpositioned. This catheter was successfully removed over a wire. There is contrast pooling in a large diverticulum, with further opacification of the large bowel with contrast injection. There is no significant residual abscess cavity. There is a faint tract to the skin. In time, the tract should close, and no further skin drainage should be seen. Specimen: None EBL: <5 cc
--- NOTE | 2016-12-23 11:15 | Post Anesthesia Evaluation ---
- Post Anesthesia Evaluation Patient Participated: Yes Airway Patent: Yes Stable Respiratory Function: Yes Temp > 96.8F: Yes Pain Manageable: Yes Adequeate Hydration: Yes Anesthesia Complications: No Block Receding Appropriately: Not Applicable
[2016-12-23] MEDS: ZYVOX 600MG/300ML 600 MG/300 ML BAG IV SCH ×2 (11:35→21:43)
--- NOTE | 2016-12-23 14:19 | Progress Note ---
Assessment and Plan Pt feeling well. jose juan cl liq Abd soft. non tender. drain removed stable supplement diet with PO Ensure begin tapering TPN if diet jose juan antibiotics as per ID Selected Entries 12/23/16 08:00 Temperature 98.4 F Pulse Rate [ 70 Apical] Respiratory 18 Rate Blood Pressure 115/72 [Left Arm] Objective Vital Signs - 12hr 12/23/16 08:00 Temperature 98.4 F Pulse Rate [ 70 Apical] Pulse Rate [ 70 Brachial] Respiratory 18 Rate Blood Pressure 115/72 [Left Arm] O2 Sat by Pulse 99 Oximetry - Labs 12/21/16 06:13 12/23/16 06:50 Diabetes panel 12/23/16 Range/Units 06:50 Sodium 139 (137-145) mmol/L Potassium 5.1 H D (3.6-5.0) mmol/L Chloride 99.0 (98-107) mmol/L Carbon Dioxide 29 (22-30) mmol/L BUN 13 (7-17) mg/dL Creatinine 0.5 L (0.7-1.2) mg/dL Glucose 105 H (65-100) mg/dL Calcium 8.8 (8.4-10.2) mg/dL Triglycerides 84 (2-149) mg/dL Calcium panel 12/23/16 Range/Units 06:50 Calcium 8.8 (8.4-10.2) mg/dL Phosphorus 4.10 (2.5-4.5) mg/dL Pituitary panel 12/23/16 Range/Units 06:50 Sodium 139 (137-145) mmol/L Potassium 5.1 H D (3.6-5.0) mmol/L Chloride 99.0 (98-107) mmol/L Carbon Dioxide 29 (22-30) mmol/L BUN 13 (7-17) mg/dL Creatinine 0.5 L (0.7-1.2) mg/dL Glucose 105 H (65-100) mg/dL Calcium 8.8 (8.4-10.2) mg/dL Adrenal panel 12/23/16 Range/Units 06:50 Sodium 139 (137-145) mmol/L Potassium 5.1 H D (3.6-5.0) mmol/L Chloride 99.0 (98-107) mmol/L Carbon Dioxide 29 (22-30) mmol/L BUN 13 (7-17) mg/dL Creatinine 0.5 L (0.7-1.2) mg/dL Glucose 105 H (65-100) mg/dL Calcium 8.8 (8.4-10.2) mg/dL
[2016-12-23] MEDS ORDERED: TPN ADULT 2,016 ML IV SCH (20:00)
[2016-12-23] MEDS ORDERED: INTRALIPID 20% 250 ML IV SCH (20:00)
[2016-12-24] MEDS: FLAGYL 500 MG/100 ML 500 MG/100 ML BAG IV SCH ×2 (01:23→17:01)
[2016-12-24] MEDS: AMBIEN PO PRN (01:29)
[2016-12-24 04:03] LABS: Anion Gap 15 mmol/L; Blood Urea Nitrogen 11 mg/dL (7-17); Calcium 8.4 mg/dL (8.4-10.2); Carbon Dioxide 25 mmol/L (22-30); Glucose 114 mg/dL (65-100); Potassium 3.9 mmol/L (3.6-5.0); Sodium 136 mmol/L (137-145)
[2016-12-24] MEDS: LEVAQUIN 750MG/150ML 750 MG/150 ML BAG IV SCH (05:37)
--- NOTE | 2016-12-24 07:22 | Progress Note ---
Assessment and Plan - Patient Problems (1) Diverticulitis of intestine with abscess Current Visit: Yes Status: Acute Qualifiers: Diverticulitis site: large intestine Diverticulitis bleeding: unspecified bleeding status Qualified Code(s): K57.20 - Diverticulitis of large intestine with perforation and abscess without bleeding Plan to address problem: 1. Continue IV antibiotics for now. When reliably tolerating PO intake, will change to oral antibiotics. 2. Linezolid, Levaquin and Flagyl through January 03, 2017. Subjective Date of service: 12/24/16 Principal diagnosis: Diverticular Abscess Interval history: Drain is removed. Patient is not reliably tolerating oral intake. Meds changed to oral route, but now IV route resumed. Objective - Constitutional Vitals: Vital Signs Temp Pulse Resp BP Pulse Ox 98.1 F 84 18 117/72 99 12/24/16 03:54 12/24/16 03:54 12/24/16 04:00 12/24/16 03:54 12/23/16 23:25 Temperature -Last 24 Hours Temperature 98.1 F Temperature 98.5 F Temperature 97.9 F Temperature 98 F Temperature 98.4 F General appearance: Present: no acute distress - EENT ENT: edentulous - Respiratory Respiratory effort: normal Respiratory: bilateral: CTA - Cardiovascular Rhythm: regular Heart Sounds: Present: S1 & S2 Extremities: No edema Extremity abnormal: tenderness - Gastrointestinal General gastrointestinal: Present: soft, non-distended, other (site at suprapubic area s/p drain mildly tender, no drainage) - Integumentary Integumentary: clear, no rash - Psychiatric Psychiatric: appropriate mood/affect - Additional findings Additional findings: PICC at left arm without inflammation - Labs CBC & Chem 7: 12/21/16 06:13 12/24/16 03:32 Labs: Abnormal lab results 12/22/16 12/22/16 12/23/16 Range/Units 12:24 17:06 06:38 Sodium (137-145) mmol/L Potassium (3.6-5.0) mmol/L Creatinine (0.7-1.2) mg/dL Glucose (65-100) mg/dL POC Glucose 158 H 113 H 123 H (70-105) 12/23/16 12/23/16 12/23/16 Range/Units 06:50 16:41 23:09 Sodium (137-145) mmol/L Potassium 5.1 H D (3.6-5.0) mmol/L Creatinine 0.5 L (0.7-1.2) mg/dL Glucose 105 H (65-100) mg/dL POC Glucose 157 H 144 H (70-105) 12/24/16 12/24/16 Range/Units 03:32 05:23 Sodium 136 L (137-145) mmol/L Potassium (3.6-5.0) mmol/L Creatinine 0.5 L (0.7-1.2) mg/dL Glucose 114 H (65-100) mg/dL POC Glucose 122 H (70-105) Microbiology 12/14/16 13:20 Abdomen Wound Culture - Final Staphylococcus Epidermidis Staphylococcus Epidermidis#3
[2016-12-24] MEDS: ZOFRAN IV PRN ×2 (08:35→19:57)
[2016-12-24] MEDS: HABITROL TD SCH (10:46)
[2016-12-24] MEDS ORDERED: ZYVOX PO SCH (13:00)
--- NOTE | 2016-12-24 14:09 | Progress Note ---
Assessment and Plan Pt feeling well but c/o diarrhea. neg abd pain. Abd soft. non tender surgically stable stool cults hold any diet advancement at this time Selected Entries 12/24/16 07:15 Temperature 98.2 F Pulse Rate [ 78 Brachial] Respiratory 20 Rate Blood Pressure 113/70 [Left Arm] Laboratory Tests 12/24/16 03:32 Sodium 136 L Potassium 3.9 D Chloride 100.0 BUN 11 Creatinine 0.5 L Objective Vital Signs - 12hr 12/24/16 12/24/16 12/24/16 03:54 04:00 07:15 Temperature 98.1 F 98.2 F Pulse Rate [ 84 78 Brachial] Respiratory 20 20 Rate Respiratory 18 Rate [Left Abdomen] Blood Pressure 117/72 113/70 [Left Arm] O2 Sat by Pulse 99 Oximetry - Labs 12/21/16 06:13 12/24/16 03:32 Diabetes panel 12/24/16 Range/Units 03:32 Sodium 136 L (137-145) mmol/L Potassium 3.9 D (3.6-5.0) mmol/L Chloride 100.0 (98-107) mmol/L Carbon Dioxide 25 (22-30) mmol/L BUN 11 (7-17) mg/dL Creatinine 0.5 L (0.7-1.2) mg/dL Glucose 114 H (65-100) mg/dL Calcium 8.4 (8.4-10.2) mg/dL Calcium panel 12/24/16 Range/Units 03:32 Calcium 8.4 (8.4-10.2) mg/dL Phosphorus 3.60 (2.5-4.5) mg/dL Pituitary panel 12/24/16 Range/Units 03:32 Sodium 136 L (137-145) mmol/L Potassium 3.9 D (3.6-5.0) mmol/L Chloride 100.0 (98-107) mmol/L Carbon Dioxide 25 (22-30) mmol/L BUN 11 (7-17) mg/dL Creatinine 0.5 L (0.7-1.2) mg/dL Glucose 114 H (65-100) mg/dL Calcium 8.4 (8.4-10.2) mg/dL Adrenal panel 12/24/16 Range/Units 03:32 Sodium 136 L (137-145) mmol/L Potassium 3.9 D (3.6-5.0) mmol/L Chloride 100.0 (98-107) mmol/L Carbon Dioxide 25 (22-30) mmol/L BUN 11 (7-17) mg/dL Creatinine 0.5 L (0.7-1.2) mg/dL Glucose 114 H (65-100) mg/dL Calcium 8.4 (8.4-10.2) mg/dL
[2016-12-24] MEDS: ZYVOX 600MG/300ML 600 MG/300 ML BAG IV SCH (18:16)
[2016-12-24] MEDS: NORCO 5/325 PO PRN (19:57)
[2016-12-24] MEDS ORDERED: TPN ADULT 2,016 ML IV SCH (20:00)
[2016-12-24] MEDS ORDERED: FLAGYL PO SCH (22:00)
[2016-12-25] MEDS: FLAGYL 500 MG/100 ML 500 MG/100 ML BAG IV SCH ×3 (00:12→16:15)
[2016-12-25] MEDS: AMBIEN PO PRN (00:30)
[2016-12-25] MEDS: ZYVOX 600MG/300ML 600 MG/300 ML BAG IV SCH ×2 (03:30→18:00)
[2016-12-25 04:15] LABS: Anion Gap 16 mmol/L; Blood Urea Nitrogen 14 mg/dL (7-17); Calcium 8.4 mg/dL (8.4-10.2); Carbon Dioxide 25 mmol/L (22-30); Chloride 101.7 mmol/L (98-107); Glucose 125 mg/dL (65-100); Potassium 3.6 mmol/L (3.6-5.0); Sodium 139 mmol/L (137-145)
[2016-12-25] MEDS: LEVAQUIN 750MG/150ML 750 MG/150 ML BAG IV SCH (06:09)
[2016-12-25] MEDS ORDERED: LEVAQUIN PO SCH (10:00)
--- NOTE | 2016-12-25 10:07 | Gastroenterology Consultation ---
<PEDRO EVANS - Last Filed: 12/25/16 10:37> History of Present Illness - Reason for Consult Consult date: 12/25/16 colonoscopy Requesting physician: RAMANDEEP CROWDER - History of Present Illness Patient is a 61y/o female who was recently admitted for diverticulitis w/ abscess formation, treated with abx and after d/c developed recurrent pain which prompted readmission. Abd CT revealed an increase in size of diverticular abscess. Abscess was percutaneously drained. Pt is currently being treated with IV antibiotics with ID following, and TPN due to poor toleration of PO intake. This morning patient was resting in bed, no acute distress. C/o intermittent nausea and diarrhea with liquid diet, but denies abd pain, fever, vomiting, hematemesis, melena, or hematochezia. Stool negative for C-diff. Stool culture pending. Abdomen soft, non-distended. No hx/Fhx of IBD or Colon CA. No previous colonoscopy. Past History Past Medical History: hypertension, other (Divertiulitis) Past Surgical History: Other (bladder) Social history: Lives alone. denies: IV drug use Family history: hypertension Medications and Allergies Allergies Allergy/AdvReac Type Severity Reaction Status Date / Time No Known Allergies Allergy Verified 12/11/16 19:49 Home Medications Medication Instructions Recorded Confirmed Last Taken Type Bisacodyl [Dulcolax suppos] 10 mg OR QDAY PRN #12 supp.rect 12/05/16 12/11/16 12:00 Rx Levofloxacin [Levaquin TAB] 500 mg PO QDAY #7 tablet 12/05/16 12/11/16 12/11/16 12:00 Rx Ondansetron [Zofran TAB] 4 mg PO Q8H PRN #12 tablet 12/05/16 12/11/16 12/11/16 12:00 Rx metroNIDAZOLE [Flagyl TAB] 500 mg PO Q8HR #21 tablet 12/05/16 12/11/16 12/11/16 12:00 Rx Active Meds: Active Medications Acetaminophen/Hydrocodone Bitart ([place] 5/325) 1 each PO Q4H PRN PRN Reason: Pain, Moderate (4-6) Last Admin: 12/24/16 19:57 Dose: 1 each Sodium Chloride (Nacl 0.45% 1000 Ml) 1,000 mls @ 42 mls/hr IV DIRECT [facility] Last Admin: 12/22/16 08:52 Dose: 42 mls/hr Amino Acids/Electrolytes/Dextrose (Tpn Adult) 2,016 mls @ 84 mls/hr IV DAILY@ 2000 [facility] PRN Reason: Protocol Stop: 12/25/16 19:59 Last Admin: 12/24/16 21:42 Dose: 84 mls/hr Levofloxacin/Dextrose (Levaquin 750mg/150ml) 750 mg in 150 mls @ 100 mls/hr IV Q24H [facility] PRN Reason: Protocol Last Admin: 12/25/16 06:09 Dose: 100 mls/hr Linezolid (Zyvox 600mg/300ml) 600 mg in 300 mls @ 300 mls/hr IV Q12H [facility] PRN Reason: Protocol Last Admin: 12/25/16 03:30 Dose: 300 mls/hr Metronidazole (Flagyl 500 Mg/100 Ml) 500 mg in 100 mls @ 100 mls/hr IV Q8H [facility] Last Admin: 12/25/16 09:00 Dose: 100 mls/hr Morphine Sulfate (Morphine) 4 mg IV Q3H PRN PRN Reason: Pain, Moderate (4-6) Last Admin: 12/23/16 23:23 Dose: 4 mg Nicotine (Habitrol) 14 mg TD QDAY [facility] Last Admin: 12/24/16 10:46 Dose: 14 mg Ondansetron HCl (Zofran) 4 mg IV Q4H PRN PRN Reason: Nausea Last Admin: 12/24/16 19:57 Dose: 4 mg Zolpidem Tartrate (Ambien) 10 mg PO QHS PRN PRN Reason: Insomnia Last Admin: 12/25/16 00:30 Dose: 5 mg Review of Systems - Review of Systems All systems: negative Gastrointestinal: nausea, diarrhea, no vomiting, no hematemesis, no coffee ground emesis, no BRBPR, no melena, no hematochezia Exam - Constitutional Vital Signs: Temp Pulse Resp BP Pulse Ox 97 F L 79 20 104/49 97 12/25/16 07:00 12/25/16 07:00 12/25/16 07:00 12/25/16 07:00 12/25/16 07:00 General appearance: no acute distress - EENT Eyes: PERRL, EOM intact ENT: hearing intact - Neck Neck: supple, normal ROM - Respiratory Respiratory: bilateral: CTA - Cardiovascular Rhythm: regular Heart Sounds: Present: S1 & S2 Extremities: No edema - Gastrointestinal General gastrointestinal: Present: soft, non-tender, non-distended, normal bowel sounds, other (dressing clean, dry, and intact from drain removal) - Integumentary Integumentary: Present: warm, dry - Neurologic Neurological: alert and oriented x3 - Psychiatric Psychiatric: appropriate mood/affect, cooperative - Labs CBC & Chem 7: 12/21/16 06:13 12/25/16 03:35 Lab Results: Laboratory Results - last 24 hr 12/25/16 03:35 Sodium 139 Potassium 3.6 Chloride 101.7 Carbon Dioxide 25 Anion Gap 16 BUN 14 Creatinine 0.4 L Estimated GFR > 60 BUN/Creatinine Ratio 35.00 Glucose 125 H Calcium 8.4 Phosphorus 3.50 Assessment and Plan 1.recurrent diverticulitis w/ abscess -afebrile -WBC-WNL -s/p percutaneous drainage of abscess -repeat abd CT on 12/22 revealed near resolution of diverticular abscess- drain removed -clinically pt's abd pain has improved, however she now has c/o diarrhea and nausea with poor po intake -stool- [id number]-[id number], culture pending -continue current abx therapy- ID following -continue supportive care -no GI intervention recommended at this time -Patient will need a outpatient colonoscopy in 8 weeks to evaluate resolution of diverticulitis and to r/o colon CA -Discussed plan of care including need for f/u appt in 8 weeks to schedule colonoscopy, pt voiced understanding -office information and card given -will sign off <RJ PRATHER - Last Filed: 12/25/16 11:16> Medications and Allergies Active Meds: Active Medications Acetaminophen/Hydrocodone Bitart ([place] 5/325) 1 each PO Q4H PRN PRN Reason: Pain, Moderate (4-6) Last Admin: 12/24/16 19:57 Dose: 1 each Sodium Chloride (Nacl 0.45% 1000 Ml) 1,000 mls @ 42 mls/hr IV DIRECT [facility] Last Admin: 12/22/16 08:52 Dose: 42 mls/hr Amino Acids/Electrolytes/Dextrose (Tpn Adult) 2,016 mls @ 84 mls/hr IV DAILY@ 2000 [facility] PRN Reason: Protocol Stop: 12/25/16 19:59 Last Admin: 12/24/16 21:42 Dose: 84 mls/hr Levofloxacin/Dextrose (Levaquin 750mg/150ml) 750 mg in 150 mls @ 100 mls/hr IV Q24H [facility] PRN Reason: Protocol Last Admin: 12/25/16 06:09 Dose: 100 mls/hr Linezolid (Zyvox 600mg/300ml) 600 mg in 300 mls @ 300 mls/hr IV Q12H [facility] PRN Reason: Protocol Last Admin: 12/25/16 03:30 Dose: 300 mls/hr Metronidazole (Flagyl 500 Mg/100 Ml) 500 mg in 100 mls @ 100 mls/hr IV Q8H [facility] Last Admin: 12/25/16 09:00 Dose: 100 mls/hr Morphine Sulfate (Morphine) 4 mg IV Q3H PRN PRN Reason: Pain, Moderate (4-6) Last Admin: 12/23/16 23:23 Dose: 4 mg Nicotine (Habitrol) 14 mg TD QDAY [facility] Last Admin: 12/25/16 10:26 Dose: 14 mg Ondansetron HCl (Zofran) 4 mg IV Q4H PRN PRN Reason: Nausea Last Admin: 12/24/16 19:57 Dose: 4 mg Zolpidem Tartrate (Ambien) 10 mg PO QHS PRN PRN Reason: Insomnia Last Admin: 12/25/16 00:30 Dose: 5 mg Exam - Constitutional Vital Signs: Temp Pulse Resp BP Pulse Ox 97 F L 79 20 104/49 97 12/25/16 07:00 12/25/16 07:00 12/25/16 07:00 12/25/16 07:00 12/25/16 07:00 - Labs CBC & Chem 7: 12/21/16 06:13 12/25/16 03:35 Lab Results: Laboratory Results - last 24 hr 12/25/16 03:35 Sodium 139 Potassium 3.6 Chloride 101.7 Carbon Dioxide 25 Anion Gap 16 BUN 14 Creatinine 0.4 L Estimated GFR > 60 BUN/Creatinine Ratio 35.00 Glucose 125 H Calcium 8.4 Phosphorus 3.50 Assessment and Plan - Patient Problems (1) Acute diverticulitis Current Visit: No Status: Acute Plan to address problem: Complicated diverticulitis. Patient was seen and examined. She is slowly improving. Care plan for outpatient colonoscopy in 2-3 months discussed. She has had 2 or 3 bouts in the past year and may be considered for elective surgery , if no cancer found at outpatient colonoscopy. Thank you very kindly Dr. Paiz for asking us to see her in consultation.
[2016-12-25] MEDS: HABITROL TD SCH (10:26)
--- NOTE | 2016-12-25 12:03 | Progress Note ---
Assessment and Plan Pt status quo. comfortable. resting in bed watching TV still bouts of diarrhea on cl liq Abd soft non tender surgically stable stool cults c diff neg other stool cults pending GI eval appreciated will hold off on advancing diet until diarrhea resolves keep TPN for now antibiotics as per ID Selected Entries 12/25/16 07:00 Temperature 97 F L Pulse Rate [ 79 Brachial] Blood Pressure 104/49 [Left Arm] Objective Vital Signs - 12hr 12/25/16 12/25/16 00:20 07:00 Temperature 97 F L Pulse Rate [ 79 Apical] Pulse Rate [ 79 Brachial] Respiratory 18 20 Rate Blood Pressure 104/49 [Left Arm] O2 Sat by Pulse 97 Oximetry - Labs 12/21/16 06:13 12/25/16 03:35 Diabetes panel 12/25/16 Range/Units 03:35 Sodium 139 (137-145) mmol/L Potassium 3.6 (3.6-5.0) mmol/L Chloride 101.7 (98-107) mmol/L Carbon Dioxide 25 (22-30) mmol/L BUN 14 (7-17) mg/dL Creatinine 0.4 L (0.7-1.2) mg/dL Glucose 125 H (65-100) mg/dL Calcium 8.4 (8.4-10.2) mg/dL Calcium panel 12/25/16 Range/Units 03:35 Calcium 8.4 (8.4-10.2) mg/dL Phosphorus 3.50 (2.5-4.5) mg/dL Pituitary panel 12/25/16 Range/Units 03:35 Sodium 139 (137-145) mmol/L Potassium 3.6 (3.6-5.0) mmol/L Chloride 101.7 (98-107) mmol/L Carbon Dioxide 25 (22-30) mmol/L BUN 14 (7-17) mg/dL Creatinine 0.4 L (0.7-1.2) mg/dL Glucose 125 H (65-100) mg/dL Calcium 8.4 (8.4-10.2) mg/dL Adrenal panel 12/25/16 Range/Units 03:35 Sodium 139 (137-145) mmol/L Potassium 3.6 (3.6-5.0) mmol/L Chloride 101.7 (98-107) mmol/L Carbon Dioxide 25 (22-30) mmol/L BUN 14 (7-17) mg/dL Creatinine 0.4 L (0.7-1.2) mg/dL Glucose 125 H (65-100) mg/dL Calcium 8.4 (8.4-10.2) mg/dL
--- NOTE | 2016-12-25 12:12 | Progress Note ---
Assessment and Plan - Patient Problems (1) Diverticulitis of intestine with abscess Current Visit: Yes Status: Acute Qualifiers: Diverticulitis site: large intestine Diverticulitis bleeding: unspecified bleeding status Qualified Code(s): K57.20 - Diverticulitis of large intestine with perforation and abscess without bleeding Plan to address problem: 1. Continue current combination of antimicrobials, tentatively through January 03. 2. Cdiff is negative. Patient is on Flagyl. Subjective Date of service: 12/25/16 Principal diagnosis: Diverticular Abscess Interval history: Remains afebrile, clinically stable. Tolerating clears diet today. Objective - Constitutional Vitals: Vital Signs Temp Pulse Resp BP Pulse Ox 97 F L 79 20 104/49 97 12/25/16 07:00 12/25/16 07:00 12/25/16 07:00 12/25/16 07:00 12/25/16 07:00 Temperature -Last 24 Hours Temperature 97 F Temperature 98.1 F Temperature 98.2 F Temperature 98.3 F General appearance: Present: no acute distress - EENT Eyes: no scleral icterus - Neck Neck: supple - Respiratory Respiratory: bilateral: CTA - Cardiovascular Rhythm: regular Heart Sounds: Present: S1 & S2 Extremities: No edema - Gastrointestinal General gastrointestinal: Present: soft, non-distended, other (prior drain site without inflammation) - Psychiatric Psychiatric: appropriate mood/affect - Labs CBC & Chem 7: 12/21/16 06:13 12/25/16 03:35 Labs: Abnormal lab results 12/25/16 Range/Units 03:35 Creatinine 0.4 L (0.7-1.2) mg/dL Glucose 125 H (65-100) mg/dL Microbiology 12/24/16 18:20 Stool C. difficile DNA Amplification - Final (negative) 12/24/16 18:20 Stool Stool Culture - Preliminary 12/14/16 13:20 Abdomen Wound Culture - Final Staphylococcus Epidermidis Staphylococcus Epidermidis#3
[2016-12-25] MEDS: NACL 0.45% 1000 ML 1,000 ML IV SCH (13:51)
[2016-12-25] MEDS ORDERED: INTRALIPID 20% 250 ML IV SCH (20:00)
[2016-12-25] MEDS ORDERED: TPN ADULT 2,016 ML IV SCH (20:00)
[2016-12-25] MEDS: NORCO 5/325 PO PRN (20:13)
[2016-12-26] MEDS: FLAGYL 500 MG/100 ML 500 MG/100 ML BAG IV SCH ×4 (00:45→23:46)
[2016-12-26] MEDS: AMBIEN PO PRN ×2 (00:45→22:19)
[2016-12-26] MEDS: ZYVOX 600MG/300ML 600 MG/300 ML BAG IV SCH ×2 (04:28→17:43)
[2016-12-26 04:59] LABS: Anion Gap 14 mmol/L; Blood Urea Nitrogen 13 mg/dL (7-17); Calcium 8.5 mg/dL (8.4-10.2); Carbon Dioxide 25 mmol/L (22-30); Chloride 104.5 mmol/L (98-107); Glucose 125 mg/dL (65-100); Potassium 3.6 mmol/L (3.6-5.0); Sodium 140 mmol/L (137-145)
[2016-12-26] MEDS: LEVAQUIN 750MG/150ML 750 MG/150 ML BAG IV SCH (05:37)
[2016-12-26] MEDS: ZOFRAN IV PRN (08:05)
[2016-12-26] MEDS: HABITROL TD SCH (10:12)
--- NOTE | 2016-12-26 19:59 | Progress Note ---
Assessment and Plan Pt feeling well. states diarrhea "improving". Had one episode of LLQ abd pain earlier in the day but none since Abd soft, non tender stable continue present care will attempt full liq in am if diarrhea has continued to improve Selected Entries 12/26/16 07:10 Temperature 97.7 F Blood Pressure 130/75 [Left Arm] Objective - Labs 12/21/16 06:13 12/26/16 04:25 Diabetes panel 12/26/16 Range/Units 04:25 Sodium 140 (137-145) mmol/L Potassium 3.6 (3.6-5.0) mmol/L Chloride 104.5 (98-107) mmol/L Carbon Dioxide 25 (22-30) mmol/L BUN 13 (7-17) mg/dL Creatinine 0.5 L (0.7-1.2) mg/dL Glucose 125 H (65-100) mg/dL Calcium 8.5 (8.4-10.2) mg/dL Calcium panel 12/26/16 Range/Units 04:25 Calcium 8.5 (8.4-10.2) mg/dL Phosphorus 3.20 (2.5-4.5) mg/dL Pituitary panel 12/26/16 Range/Units 04:25 Sodium 140 (137-145) mmol/L Potassium 3.6 (3.6-5.0) mmol/L Chloride 104.5 (98-107) mmol/L Carbon Dioxide 25 (22-30) mmol/L BUN 13 (7-17) mg/dL Creatinine 0.5 L (0.7-1.2) mg/dL Glucose 125 H (65-100) mg/dL Calcium 8.5 (8.4-10.2) mg/dL Adrenal panel 12/26/16 Range/Units 04:25 Sodium 140 (137-145) mmol/L Potassium 3.6 (3.6-5.0) mmol/L Chloride 104.5 (98-107) mmol/L Carbon Dioxide 25 (22-30) mmol/L BUN 13 (7-17) mg/dL Creatinine 0.5 L (0.7-1.2) mg/dL Glucose 125 H (65-100) mg/dL Calcium 8.5 (8.4-10.2) mg/dL
[2016-12-26] MEDS ORDERED: TPN ADULT 2,016 ML IV SCH (20:00)
[2016-12-26] MEDS: NACL 0.45% 1000 ML 1,000 ML IV SCH (22:21)
[2016-12-27] MEDS: LEVAQUIN 750MG/150ML 750 MG/150 ML BAG IV SCH (04:13)
[2016-12-27] MEDS: ZYVOX 600MG/300ML 600 MG/300 ML BAG IV SCH ×2 (06:08→15:25)
[2016-12-27 07:23] LABS: Anion Gap 16 mmol/L; Blood Urea Nitrogen 13 mg/dL (7-17); Carbon Dioxide 25 mmol/L (22-30); Chloride 101.8 mmol/L (98-107); Glucose 150 mg/dL (65-100); Potassium 3.8 mmol/L (3.6-5.0); Sodium 139 mmol/L (137-145)
[2016-12-27] MEDS: FLAGYL 500 MG/100 ML 500 MG/100 ML BAG IV SCH ×3 (08:04→23:28)
--- NOTE | 2016-12-27 10:12 | Progress Note ---
Assessment and Plan Pt feeling better. Abd soft, non tender stable attempt full liq diet Selected Entries 12/27/16 07:18 Temperature 98.1 F Pulse Rate [ 80 Apical] Respiratory 97 H Rate Blood Pressure 123/68 [Left Arm] Laboratory Tests 12/27/16 06:18 Sodium 139 Potassium 3.8 Chloride 101.8 Carbon Dioxide 25 BUN 13 Creatinine 0.5 L Objective Vital Signs - 12hr 12/26/16 12/27/16 23:44 07:18 Temperature 98.6 F 98.1 F Pulse Rate [ 94 H 80 Apical] Pulse Rate [ 95 H 80 Brachial] Respiratory 20 97 H Rate Blood Pressure 124/74 123/68 [Left Arm] O2 Sat by Pulse 97 Oximetry - Labs 12/21/16 06:13 12/27/16 06:18 Diabetes panel 12/27/16 Range/Units 06:18 Sodium 139 (137-145) mmol/L Potassium 3.8 (3.6-5.0) mmol/L Chloride 101.8 (98-107) mmol/L Carbon Dioxide 25 (22-30) mmol/L BUN 13 (7-17) mg/dL Creatinine 0.5 L (0.7-1.2) mg/dL Glucose 150 H (65-100) mg/dL Calcium 8.0 L (8.4-10.2) mg/dL Calcium panel 12/27/16 Range/Units 06:18 Calcium 8.0 L (8.4-10.2) mg/dL Phosphorus 3.60 (2.5-4.5) mg/dL Pituitary panel 12/27/16 Range/Units 06:18 Sodium 139 (137-145) mmol/L Potassium 3.8 (3.6-5.0) mmol/L Chloride 101.8 (98-107) mmol/L Carbon Dioxide 25 (22-30) mmol/L BUN 13 (7-17) mg/dL Creatinine 0.5 L (0.7-1.2) mg/dL Glucose 150 H (65-100) mg/dL Calcium 8.0 L (8.4-10.2) mg/dL Adrenal panel 12/27/16 Range/Units 06:18 Sodium 139 (137-145) mmol/L Potassium 3.8 (3.6-5.0) mmol/L Chloride 101.8 (98-107) mmol/L Carbon Dioxide 25 (22-30) mmol/L BUN 13 (7-17) mg/dL Creatinine 0.5 L (0.7-1.2) mg/dL Glucose 150 H (65-100) mg/dL Calcium 8.0 L (8.4-10.2) mg/dL
[2016-12-27] MEDS: HABITROL TD SCH (10:16)
[2016-12-27] MEDS: ZOFRAN IV PRN ×2 (10:26→19:54)
[2016-12-27] MEDS ORDERED: TPN ADULT 2,016 ML IV SCH (20:00)
[2016-12-27] MEDS: AMBIEN PO PRN (23:28)
[2016-12-28] MEDS: NACL 0.45% 1000 ML 1,000 ML IV SCH (04:21)
[2016-12-28] MEDS: ZYVOX 600MG/300ML 600 MG/300 ML BAG IV SCH ×4 (04:23→17:13)
[2016-12-28] MEDS: LEVAQUIN 750MG/150ML 750 MG/150 ML BAG IV SCH (04:24)
[2016-12-28 05:40] LABS: Anion Gap 15 mmol/L; Blood Urea Nitrogen 14 mg/dL (7-17); Calcium 8.2 mg/dL (8.4-10.2); Carbon Dioxide 25 mmol/L (22-30); Chloride 102.6 mmol/L (98-107); Glucose 164 mg/dL (65-100); Potassium 3.9 mmol/L (3.6-5.0); Sodium 139 mmol/L (137-145)
[2016-12-28] MEDS: FLAGYL 500 MG/100 ML 500 MG/100 ML BAG IV SCH (08:13)
--- NOTE | 2016-12-28 09:01 | Progress Note ---
Assessment and Plan - Patient Problems (1) Diverticulitis of intestine with abscess Current Visit: Yes Status: Acute Qualifiers: Diverticulitis site: large intestine Diverticulitis bleeding: unspecified bleeding status Qualified Code(s): K57.20 - Diverticulitis of large intestine with perforation and abscess without bleeding Plan to address problem: 1. Planned completion of antibiotics course on January 03. 2. Will discontinue Flagyl today. Keep Zyvox and Levaquin, which can be changed to oral route at same doses, to complete 5 more days. Subjective Date of service: 12/28/16 Principal diagnosis: Diverticular Abscess Interval history: Patient complains of nausea with Flagyl. Objective - Constitutional Vitals: Vital Signs Temp Pulse Resp BP Pulse Ox 98.2 F 82 20 119/72 97 12/28/16 07:25 12/28/16 07:25 12/28/16 07:25 12/28/16 07:25 12/28/16 07:25 Temperature -Last 24 Hours Temperature 98.2 F Temperature 98.2 F Temperature 98.3 F General appearance: Present: no acute distress - EENT Eyes: no scleral icterus - Respiratory Respiratory effort: normal Respiratory: bilateral: CTA - Cardiovascular Rhythm: regular Heart Sounds: Present: S1 & S2 Extremities: No edema - Gastrointestinal General gastrointestinal: Present: soft, tender, non-distended Localized gastrointestinal: tender: RLQ, suprapubic - Integumentary Integumentary: no clear, no rash - Psychiatric Psychiatric: appropriate mood/affect - Additional findings Additional findings: PICC left arm - Labs CBC & Chem 7: 12/21/16 06:13 12/28/16 05:06 Labs: Abnormal lab results 12/27/16 12/27/16 12/28/16 Range/Units 11:46 23:51 05:06 Creatinine 0.5 L (0.7-1.2) mg/dL Glucose 164 H (65-100) mg/dL POC Glucose 110 H 106 H (70-105) Calcium 8.2 L (8.4-10.2) mg/dL 12/28/16 Range/Units 06:14 Creatinine (0.7-1.2) mg/dL Glucose (65-100) mg/dL POC Glucose 127 H (70-105) Calcium (8.4-10.2) mg/dL Microbiology 12/24/16 18:20 Stool Stool Culture - Final (negative) 12/24/16 18:20 Stool C. difficile DNA Amplification - Final 12/14/16 13:20 Abdomen Wound Culture - Final Staphylococcus Epidermidis Staphylococcus Epidermidis#3
[2016-12-28] MEDS: HABITROL TD SCH (09:24)
--- NOTE | 2016-12-28 10:33 | Progress Note ---
Assessment and Plan Pt feeling very well. in good spirits. "no diarrhea today" jose juan full liq Abd soft elevated LFT's most likely secondary to TPN surgically stable taper & D/c TPN today will d/c in am if cleared by ID Selected Entries 12/28/16 07:25 Temperature 98.2 F Pulse Rate [ 82 Apical] Respiratory 20 Rate Blood Pressure 119/72 [Left Arm] Laboratory Tests 12/28/16 12/28/16 05:06 06:14 Sodium 139 Potassium 3.9 Chloride 102.6 Carbon Dioxide 25 BUN 14 Creatinine 0.5 L Glucose 164 H POC Glucose 127 H Calcium 8.2 L Objective Vital Signs - 12hr 12/28/16 12/28/16 00:42 07:25 Temperature 98.2 F 98.2 F Pulse Rate [ 86 82 Apical] Pulse Rate [ 86 82 Brachial] Respiratory 20 20 Rate Blood Pressure 138/79 119/72 [Left Arm] O2 Sat by Pulse 97 97 Oximetry - Labs 12/21/16 06:13 12/28/16 05:06 Diabetes panel 12/28/16 Range/Units 05:06 Sodium 139 (137-145) mmol/L Potassium 3.9 (3.6-5.0) mmol/L Chloride 102.6 (98-107) mmol/L Carbon Dioxide 25 (22-30) mmol/L BUN 14 (7-17) mg/dL Creatinine 0.5 L (0.7-1.2) mg/dL Glucose 164 H (65-100) mg/dL Calcium 8.2 L (8.4-10.2) mg/dL Calcium panel 12/28/16 Range/Units 05:06 Calcium 8.2 L (8.4-10.2) mg/dL Phosphorus 3.90 (2.5-4.5) mg/dL Pituitary panel 12/28/16 Range/Units 05:06 Sodium 139 (137-145) mmol/L Potassium 3.9 (3.6-5.0) mmol/L Chloride 102.6 (98-107) mmol/L Carbon Dioxide 25 (22-30) mmol/L BUN 14 (7-17) mg/dL Creatinine 0.5 L (0.7-1.2) mg/dL Glucose 164 H (65-100) mg/dL Calcium 8.2 L (8.4-10.2) mg/dL Adrenal panel 12/28/16 Range/Units 05:06 Sodium 139 (137-145) mmol/L Potassium 3.9 (3.6-5.0) mmol/L Chloride 102.6 (98-107) mmol/L Carbon Dioxide 25 (22-30) mmol/L BUN 14 (7-17) mg/dL Creatinine 0.5 L (0.7-1.2) mg/dL Glucose 164 H (65-100) mg/dL Calcium 8.2 L (8.4-10.2) mg/dL
[2016-12-29] MEDS: ZYVOX 600MG/300ML 600 MG/300 ML BAG IV SCH (04:43)
[2016-12-29] MEDS: LEVAQUIN 750MG/150ML 750 MG/150 ML BAG IV SCH (06:52)
--- NOTE | 2016-12-29 08:10 | Progress Note ---
Assessment and Plan Pt feeling well without compl. jose juan full liq. diarrhea resolved Abd soft, non tender stable d/c today if cleared by ID rto Ryley Objective Vital Signs - 12hr 12/28/16 23:00 Temperature 98.3 F Pulse Rate [ 81 Apical] Pulse Rate [ 81 Brachial] Respiratory 18 Rate Blood Pressure 130/68 [Left Arm] O2 Sat by Pulse 96 Oximetry - Labs 12/21/16 06:13 12/28/16 05:06
--- NOTE | 2016-12-29 08:14 | Discharge Summary ---
Providers - Providers Date of Admission: 12/11/16 22:08 Attending physician: RAMANDEEP CROWDER 12/11/16 22:11 Consult to Physician [CONS] Routine Consulting Provider: EVY SOLIS Reason For Exam: CT guided drainage for diverticular abscess Place consult to:: Dr. Hanks Notified:: Phone number called:: [phone] Was contact made?: Yes If yes, spoke with:: Dr. Hanks Time called:: 08:53 Comment:: No IR loss control technician this . Make pt. NPO Wednesday. Call Wednesday. 12/12/16 11:17 Consult to Dietitian/Nutrition [CONS] Routine Physician Instructions: Reason For Exam: Order for TPN Reason for Consult: Write/Manage TPN/PPN 12/12/16 11:18 Consult to PICC Line RN [CONS] Routine Reason For Exam: Picc line Type Line:: PICC 12/15/16 10:44 Consult to Physician [CONS] Routine Consulting Provider: BIRD DAMON Reason For Exam: diverticular abscess Place consult to:: DR. DAMON Notified:: DR. DAMON If yes, spoke with:: Y Time called:: 10:31 Comment:: CONSULT COMPLETED - DEON 12/24/16 07:19 Consult to Case Management [CONS] Routine Services Needed at Discharge: Other Notified:: yes If yes, spoke with:: Contance Comment:: Assistance obtaining outpatient Linezolid prescription 12/24/16 14:10 Consult to Physician [CONS] Routine Consulting Provider: RJ PRATHER Reason For Exam: will need colonoscopy in [address] consult to:: Yoon Notified:: yes Phone number called:: [phone] If yes, spoke with:: Osman Genao called:: 08:35 Primary care physician: JACKSCREW WORKER Hospitalization Condition: Good Disposition: DC-01 TO HOME OR SELFCARE Core Measure Documentation - Palliative Care Palliative Care/ Comfort Measures: Not Applicable - Core Measures Any of the following diagnoses?: none Exam - Constitutional Vitals: Temp Pulse Resp BP Pulse Ox 98.3 F 81 18 130/68 96 12/28/16 23:00 12/28/16 23:00 12/28/16 23:00 12/28/16 23:00 12/28/16 23:00 Plan Activity: other (full liq diet. antibiotics) Weight Bearing Status: Partial Weight Bearing Diet: other (full liq with po ensure plus supplementation 2 cans/day) Additional Instructions: may d/c if cleared by ID. antibiotics as per ID Follow up with: RAMANDEEP CROWDER MD [Staff Physician] - 12/31/16
[2016-12-29] MEDS: ZOFRAN IV PRN (09:47)
[2016-12-29] MEDS: HABITROL TD SCH (09:47)
--- NOTE | 2016-12-29 13:32 | Discharge Summary ---
DISCHARGE DIAGNOSIS: Acute diverticulitis with diverticular abscess. PROCEDURE WHILE IN HOSPITAL: CT-guided drainage of diverticular abscess. HOSPITAL COURSE: The patient is a pleasant 61-year-old female who had recently been admitted with a bout of diverticulitis with abscess. She subsequently recovered and was discharged. However, on the day of this admission, the patient had called and said her abdominal pain had recurred. A followup CT scan of the abdomen revealed a recurrence of the diverticular abscess, actually a little larger around 4 cm. The patient was thus readmitted, underwent successful CT-guided drainage of her diverticular abscess. Throughout her hospitalization, the patient was essentially stable. ID evaluation was obtained, and the patient was kept on IV antibiotics throughout her hospitalization after a PICC line insertion. The patient slowly clinically improved. For the last few days, the patient's abdomen has been soft and nontender. She was limited to clear liquid diet, however, due to diarrhea. Subsequent stool cultures were done which were essentially negative. Currently, the patient's diarrhea has resolved. She has no abdominal pain. She is tolerating a full liquid diet without incident. Her TPN has been tapered and discontinued. Most recent blood work includes a CBC, which showed a white count of 8.4. The patient will thus tentatively be discharged today if she is cleared by ID. She will be discharged on antibiotics as per ID. The patient has been instructed to call me immediately if she has any evidence of nausea, vomiting, abdominal pain, or fever. If not, the patient will be followed up in the office in approximately 48 hours for her diet most likely will be advanced if she has remained clinically asymptomatic. The patient will also be followed up by ID as well as her primary care physician. JOB# [id number] KIT/NTS
--- NOTE | 2016-12-29 16:45 | Progress Note ---
Assessment and Plan - Patient Problems (1) Diverticulitis of intestine with abscess Current Visit: Yes Status: Acute Qualifiers: Diverticulitis site: large intestine Diverticulitis bleeding: unspecified bleeding status Qualified Code(s): K57.20 - Diverticulitis of large intestine with perforation and abscess without bleeding Plan to address problem: 1. Continue oral Levaquin and Linezolid through January 03, 2017. Prescriptions were written and placed on the patient's chart. She also has coupons for the antibiotics per case management. 2. Surgical follow-up is scheduled for December 31. Patient may follow-up with me in the office as needed. Subjective Date of service: 12/29/16 Principal diagnosis: Diverticular Abscess Interval history: Tolerating oral antibiotics. Still occasionally nauseated. For discharge to home today. Patient needs prescriptions. Objective - Constitutional Vitals: Vital Signs Temp Pulse Resp BP Pulse Ox 98.3 F 81 18 130/68 96 12/28/16 23:00 12/28/16 23:00 12/28/16 23:00 12/28/16 23:00 12/28/16 23:00 Temperature -Last 24 Hours Temperature 98.3 F Temperature 98.1 F General appearance: Present: no acute distress, other (sister at bedside) - EENT Eyes: no scleral icterus - Respiratory Respiratory: bilateral: CTA - Cardiovascular Rhythm: regular Heart Sounds: Present: S1 & S2 Extremities: No edema - Gastrointestinal General gastrointestinal: Present: soft, non-distended, normal bowel sounds - Integumentary Integumentary: clear, no jaundice - Neurologic Neurologic: no focal deficits - Labs CBC & Chem 7: 12/21/16 06:13 12/28/16 05:06
[2016-12-29 17:03] VITALS: BP 107/68
[2016-12-29] MEDS ORDERED: ZYVOX PO SCH (22:00)
[2016-12-30] MEDS ORDERED: LEVAQUIN PO SCH (10:00)
== END 2016-12-29 19:00 | disposition home health service (06) | DRG 853 ==
LOC: ED 16:43 → 3A 22:08 → 2B-SURG 12-12 13:21
PROVIDERS: ADMIT Surgery; ATTEND Surgery
PROC: 02HV33Z Insertion of Infusion Device into Superior Vena Cava, Percutaneous Approach (ICD-10-PCS; principal; 2016-12-14)
PROC: 0W9G3ZZ Drainage of Peritoneal Cavity, Percutaneous Approach (ICD-10-PCS; principal; 2016-12-14)
PROC: 0WPG30Z Removal of Drainage Device from Peritoneal Cavity, Percutaneous Approach (ICD-10-PCS; 2016-12-23)
DX: A41.9 Sepsis, unspecified organism (principal); E43 Unspecified severe protein-calorie malnutrition; L02.818 Cutaneous abscess of other sites; K57.20 Diverticulitis of large intestine with perforation and abscess without bleeding; N73.9 Female pelvic inflammatory disease, unspecified; I10 Essential (primary) hypertension; M19.90 Unspecified osteoarthritis, unspecified site; F17.210 Nicotine dependence, cigarettes, uncomplicated; I80.8 Phlebitis and thrombophlebitis of other sites; Z82.49 Family history of ischemic heart disease and other diseases of the circulatory system; Z68.22 Body mass index [BMI] 22.0-22.9, adult; Z79.899 Other long term (current) drug therapy
CPT/HCPCS: 10160; 36415; 71010; 74177; 76080; 77012; 80048; 80053; 81001; 81025; 82962; 83690; 83735; 84100; 84478; 85025; 87045; 87076; 87116; 87186; 87493; 96374; 96375; 99406; C1751; C1769; J0690; J1956; J2020; J2250; J2270; J2405; J3010; J7050; Q9967

== ENCOUNTER 2017-01-02 13:12 | Emergency (ER) | payer OTHER ==
[2017-01-02 13:25] VITALS: BP 137/85
[2017-01-02 14:03] LABS: Bacteria,Urine 2+ /HPF (Negative); Bilirubin,Urine NEG (Negative); Blood,Urine LG (Negative); Ketones,Urine NEG (Negative); Leukocyte Esterase,Urine NEG (Negative); Nitrite,Urine POS (Negative); Urobilinogen,Urine < 2.0 mg/dL (<2.0)
[2017-01-02 14:05] LABS: WBC,Urine > 182.0 /HPF (0.0-6.0)
[2017-01-02 15:00] LABS: Basophils % (Auto) 0.2 % (0.0-1.8); Eosinophils % (Auto) 3.8 % (0.0-4.3); Hematocrit 36.3 % (30.3-42.9); Hemoglobin 11.7 gm/dl (10.1-14.3); Mean Corpuscular HGB Conc 32 % (30-34); Mean Corpuscular Hemoglobin 27 pg (28-32); Mean Corpuscular Volume 84 fl (79-97); Platelet Count 410 K/mm3 (140-440); Red Cell Distribution Width 16.1 % (13.2-15.2)
[2017-01-02 15:14] LABS: Alanine Aminotransferase 16 units/L (7-56); Albumin 3.7 g/dL (3.9-5); Albumin/Globulin Ratio 0.9 %; Alkaline Phosphatase 115 units/L (35-129); Anion Gap 22 mmol/L; BUN/Creatinine Ratio 13.75; Blood Urea Nitrogen 11 mg/dL (7-17); Calcium 8.9 mg/dL (8.4-10.2); Carbon Dioxide 24 mmol/L (22-30); Chloride 101.4 mmol/L (98-107); Glucose 108 mg/dL (65-100); Lipase 17 units/L (13-60); Potassium 4.3 mmol/L (3.6-5.0); Sodium 143 mmol/L (137-145); Total Protein 7.7 g/dL (6.3-8.2)
[2017-01-02] MEDS ORDERED: TYLENOL PO ONE (20:12)
--- NOTE | 2017-01-05 10:13 | ED Elopement Review ---
ED Pt Elopement review - Results review Lab results: Laboratory Tests 01/02/17 01/02/17 01/02/17 13:36 13:40 13:40 WBC 12.0 H RBC 4.30 Hgb 11.7 Hct 36.3 MCV 84 MCH 27 L MCHC 32 RDW 16.1 H Plt Count 410 Lymph % (Auto) 21.3 Mayes % (Auto) 9.2 H Eos % (Auto) 3.8 Baso % (Auto) 0.2 Lymph # 2.6 Mayes # 1.1 H Eos # 0.5 H Baso # 0.0 Seg Neutrophils % 65.5 Seg Neutrophils # 7.9 H Sodium 143 Potassium 4.3 Chloride 101.4 Carbon Dioxide 24 Anion Gap 22 BUN 11 Creatinine 0.8 Estimated GFR > 60 BUN/Creatinine Ratio 13.75 Glucose 108 H Calcium 8.9 Total Bilirubin 0.50 AST 19 ALT 16 Alkaline Phosphatase 115 Total Protein 7.7 Albumin 3.7 L Albumin/Globulin Ratio 0.9 Lipase 17 Urine Color Red Urine Turbidity Cloudy Urine pH 5.0 Ur Specific [place] 1.015 Urine Protein 100 mg/dl Urine Glucose (UA) 50 Urine Ketones Neg Urine Blood Lg Urine Nitrite Pos Urine Bilirubin Neg Urine Urobilinogen < 2.0 Ur Leukocyte Esterase Neg Urine WBC (Auto) > 182.0 H Urine RBC (Auto) 138.0 U Epithel Cells (Auto) 9.0 Urine Bacteria (Auto) 2+ Urine WBC Clumps 3+ Amorphous Crystals Few - Call Back decision Pt Call Back Decision: Pt to F/U with PMD (Patient has UTI)
== END 2017-01-02 20:26 | disposition left against medical advice (07) ==
LOC: ED 13:12
DX: R31.9 Hematuria, unspecified (principal); Z53.21 Procedure and treatment not carried out due to patient leaving prior to being seen by health care provider
CPT/HCPCS: 36415; 80053; 81001; 83690; 85025